=== PATIENT | female | born 1950 | race Two or more races ===

== ENCOUNTER → 2017-05-29 | Outpatient (CLI) | payer BC, MEDICARE, OTHER ==
--- NOTE | 2017-06-03 07:38 | MM ---
Reason for exam: additional evaluation requested from abnormal screening. Last mammogram was performed 6 years ago. History: Patient is postmenopausal and is nulliparous. Physical Findings: Nurse did not find any significant physical abnormalities on exam. MG 3D Screening Mammo W/Cad Bilateral CC and MLO view(s) were taken. Prior study comparison: June 13, 2011, mammogram, performed at [facility]. There are scattered fibroglandular densities. There is chronic nodularity bilaterally. New calcifications associated with a nodule on each side on the right posteriorly and centrally and on the left at 2o'clock posteriorly. Early popcorn or other benign type calcifications are favored. ASSESSMENT: Incomplete: need additional imaging evaluation, BI-RAD 0 RECOMMENDATION: Special view mammogram of both breasts. If lesion persists on supplemental views, image directed ultrasound is recommended. [facility] will attempt to contact patient to return for supplemental views and ultrasound if indicated.
== END | disposition home or self-care (01) ==
LOC: RADMAMWWP 10:23
PROVIDERS: ATTEND Family Medicine
DX: Z12.31 Encounter for screening mammogram for malignant neoplasm of breast (principal); R92.2 Inconclusive mammogram
CPT/HCPCS: 77063; G0202

== ENCOUNTER → 2017-06-19 | Outpatient (CLI) | payer OTHER ==
--- NOTE | 2017-06-19 15:21 | MM ---
Reason for exam: additional evaluation requested from abnormal screening. Last mammogram was performed 1 month ago. History: Patient is postmenopausal and is nulliparous. Physical Findings: Nurse did not find any significant physical abnormalities on exam. MG Work Up Mamm w CAD BILAT Bilateral ML, CC with magnification, and ML with magnification view(s) were taken. LM and LM with magnification view(s) were taken of the right breast. Prior study comparison: May 29, 2017, bilateral MG 3d screening mammo w/cad. June 13, 2011, mammogram, performed at [facility]. The breast tissue is heterogeneously dense. This may lower the sensitivity of mammography. The left breast calcifications layer on true lateral compatable with benign milk of calcium. The right breast calcifications in question are similar to other calcifications through out the breast, rounded and probably benign. A 6 month follow up is recommended. These results were verbally communicated with the patient and result sheet given to the patient on 06/19/17. ASSESSMENT: Probably benign, BI-RAD 3 RECOMMENDATION: Follow-up diagnostic mammogram of the right breast in 6 months.
== END | disposition home or self-care (01) ==
LOC: RADMAMWWP 10:50
PROVIDERS: ATTEND Family Medicine
DX: R92.8 Other abnormal and inconclusive findings on diagnostic imaging of breast (principal)

== ENCOUNTER → 2018-03-24 | Outpatient (CLI) | payer OTHER ==
--- NOTE | 2018-03-24 11:30 | MM ---
Reason for exam: follow-up at short interval from prior study. Last mammogram was performed 9 months ago. History: Patient is postmenopausal and is nulliparous. Physical Findings: Nurse did not find any significant physical abnormalities on exam. MG Diagnostic Mammo RT w CAD CC and MLO view(s) were taken of the right breast. Prior study comparison: June 19, 2017, bilateral MG work up mamm w CAD BILAT. May 29, 2017, bilateral MG 3d screening mammo w/cad. Finding: There are typically benign round, grouped and diffuse/scattered calcifications in the right breast. There is a chronic nodularity in the right breast. There is no discrete abnormality. These results were verbally communicated with the patient and result sheet given to the patient on 03/24/18. ASSESSMENT: Benign, BI-RAD 2 RECOMMENDATION: Follow-up diagnostic mammogram of both breasts in 3 months. Back on schedule for June 2018.
== END | disposition home or self-care (01) ==
LOC: RADMAMWWP 10:23
PROVIDERS: ATTEND Family Medicine
DX: R92.1 Mammographic calcification found on diagnostic imaging of breast (principal)
CPT/HCPCS: 77065

== ENCOUNTER → 2019-05-18 | Outpatient (CLI) | payer OTHER ==
--- NOTE | 2019-05-18 10:15 | MM ---
Reason for exam: additional evaluation requested from prior study. Last mammogram was performed 1 year and 2 months ago. History: Patient is postmenopausal and is nulliparous. Physical Findings: Nurse did not find any significant physical abnormalities on exam. MG Diagnostic Mammo w CAD PATY Bilateral CC and MLO view(s) were taken. Prior study comparison: March 24, 2018, right breast MG diagnostic mammo RT w CAD. June 19, 2017, bilateral MG work up mamm w CAD BILAT. The breast tissue is heterogeneously dense. This may lower the sensitivity of mammography. Benign appearing stable bilateral calcifications. There is chronic nodularity bilaterally. No significant new findings when compared with previous films. These results were verbally communicated with the patient and result sheet given to the patient on 05/18/19. ASSESSMENT: Benign, BI-RAD 2 RECOMMENDATION: Routine screening mammogram of both breasts in 1 year.
== END | disposition home or self-care (01) ==
LOC: RADMAMWWP 07:45
DX: R92.1 Mammographic calcification found on diagnostic imaging of breast (principal)
CPT/HCPCS: 77066

== ENCOUNTER → 2020-05-31 | Outpatient (CLI) | payer OTHER ==
--- NOTE | 2020-06-01 14:54 | MM ---
Reason for exam: screening (asymptomatic). Last mammogram was performed 1 year ago. History: Patient is postmenopausal and is nulliparous. Physical Findings: A clinical breast exam by your physician is recommended on an annual basis and results should be correlated with mammographic findings. MG 3D Screening Mammo W/Cad Bilateral CC and MLO view(s) were taken. Prior study comparison: May 18, 2019, bilateral MG diagnostic mammo w CAD PATY. March 24, 2018, right breast MG diagnostic mammo RT w CAD. There are scattered fibroglandular densities. There is chronic nodularity bilaterally. No significant changes when compared with prior studies. ASSESSMENT: Benign, BI-RAD 2 RECOMMENDATION: Routine screening mammogram of both breasts in 1 year.
== END | disposition home or self-care (01) ==
LOC: RADMAMWWP 12:53
DX: Z12.31 Encounter for screening mammogram for malignant neoplasm of breast (principal)
CPT/HCPCS: 77063; 77067

== ENCOUNTER → 2021-06-02 | Outpatient (CLI) | payer OTHER ==
--- NOTE | 2021-06-06 13:40 | MM ---
Reason for exam: screening (asymptomatic). Last mammogram was performed 1 year ago. History: Patient is postmenopausal and is nulliparous. Physical Findings: A clinical breast exam by your physician is recommended on an annual basis and results should be correlated with mammographic findings. MG 3D Screening Mammo W/Cad Bilateral CC and MLO view(s) were taken. XCCL view(s) were taken of the right breast. Prior study comparison: May 31, 2020, bilateral MG 3d screening mammo w/cad. May 18, 2019, bilateral MG diagnostic mammo w CAD PATY. There are scattered fibroglandular densities. Stable calcifications. There is chronic nodularity bilaterally. No significant changes when compared with prior studies. ASSESSMENT: Benign, BI-RAD 2 RECOMMENDATION: Routine screening mammogram of both breasts in 1 year.
== END | disposition home or self-care (01) ==
LOC: RADMAMWWP 10:16
PROVIDERS: ATTEND Family Medicine
DX: Z12.31 Encounter for screening mammogram for malignant neoplasm of breast (principal); Z78.0 Asymptomatic menopausal state
CPT/HCPCS: 77063; 77067

== ENCOUNTER 2022-01-03 06:17 | Inpatient (IN) | payer OTHER, MEDICARE ==
[2022-01-03] MEDS ORDERED: IPRATROPIUM 0.5 MG/2.5 ML NEBU INHALATION STA (06:24)
[2022-01-03] MEDS ORDERED: ALBUTEROL NEBULIZED 2.5 MG/3 ML INHALATION STA (06:24)
[2022-01-03 06:49] LABS: Basophils # (A) 0.1 k/uL (0-0.2); Basophils % (A) 0 %; Eosinophils # (A) 0.1 k/uL (0-0.7); Eosinophils % (A) 1 %; HCT 42.2 % (34.0-46.0); Lymphocytes # (A) 0.9 k/uL (1.0-4.8); Lymphocytes % (A) 6 %; MCHC 33.2 g/dL (31.0-37.0); MCV 93.4 fL (80.0-100.0); Mean Platelet Volume 7.6; Monocytes # (A) 0.4 k/uL (0-1.0); Monocytes % (A) 3 %; Neutrophils # (A) 14.2 k/uL (1.3-7.7); Neutrophils % (A) 90 %; Platelet Count 245 k/uL (150-450); RBC 4.52 m/uL (3.80-5.40); RDW 14.4 % (11.5-15.5); WBC 15.8 k/uL (3.8-10.6)
--- NOTE | 2022-01-03 06:49 | ED ---
SOB HPI - General Chief Complaint: Shortness of Breath Stated Complaint: BRUCE Time Seen by Provider: 01/03/22 06:23 Source: patient, EMS Mode of arrival: EMS - History of Present Illness Initial Comments: This patient is 71-year-old woman brought from [facility] home for shortness of breath. [facility] Patient's ability give history slightly limited as she is very dyspneic and wearing BiPAP mask. She is able to give very short answers to questions. The breathing has been worsening over the past couple of days much worse overnight. Patient denies fever or chills. No productive cough. No chest pain. No change in urination or bowel movements. No leg swelling noted. MD Complaint: shortness of breath, cough -: days(s) Severity scale (1-10): 0 Consistency: constant Improves With: nothing Worsens With: lying flat Known History Of: COPD Associated Symptoms: denies other symptoms Treatments Prior to Arrival: oxygen, NIPPV - Related Data Home Medications Medication Instructions Recorded Confirmed Acetaminophen Tab [Tylenol] 500 mg PO Q4H PRN MDD 6 TABS 01/03/22 01/03/22 Alendronate Sodium 70 mg PO Q7D 01/03/22 01/03/22 Calcium Carbonate/Vitamin D3 1 tab PO BID 01/03/22 01/03/22 [Calcium 500 mg-Vit D3 5 mcg (200 Unit)] Carboxymethylcell/Glycerin/Pf 1 drop BOTH EYES QID 01/03/22 01/03/22 [Refresh Relieva Pf 0.5-1% Drop] DULoxetine HCL [Cymbalta] 60 mg PO DAILY 01/03/22 01/03/22 Ergocalciferol [Vitamin D2 (1250 1,250 mcg PO Q14D 01/03/22 01/03/22 Mcg = 04198 Iu)] Felodipine [Felodipine ER] 10 mg PO BID 01/03/22 01/03/22 Fluticasone/Salmeterol [Advair 1 inhalation PO RT-BID 01/03/22 01/03/22 100-50 Diskus] Furosemide [Lasix] 10 mg PO DAILY 01/03/22 01/03/22 Ipratropium/Albuter 20-100Mcg 1 puff INHALATION RT-QID PRN 01/03/22 01/03/22 [Combivent Respimat 20-100Mcg Inhaler] Latanoprost [Xalatan 0.005%] 1 drop BOTH EYES HS 01/03/22 01/03/22 Lisinopril-Hctz 20-25 mg 1 tab PO DAILY 01/03/22 01/03/22 [Zestoretic 20-25] Metoprolol Tartrate [Lopressor] 50 mg PO BID 01/03/22 01/03/22 Omeprazole [PriLOSEC] 40 mg PO DAILY 01/03/22 01/03/22 Oxybutynin Chloride [Ditropan] 5 mg PO TID 01/03/22 01/03/22 Potassium Chloride [Klor-Con 10 ER] 10 meq PO Q48H 01/03/22 01/03/22 QUEtiapine FUMARATE [SEROquel] 300 mg PO HS 01/03/22 01/03/22 Simvastatin [Zocor] 40 mg PO HS 01/03/22 01/03/22 lamoTRIgine [LaMICtal] 100 mg PO BID 01/03/22 01/03/22 lamoTRIgine [LaMICtal] 200 mg PO BID 01/03/22 01/03/22 Previous Rx's Medication Instructions Recorded Albuterol Sulfate [Albuterol 2 puff PO RT-Q8H PRN #1 inh 01/09/22 Sulfate Hfa] Allergies Allergy/AdvReac Type Severity Reaction Status Date / Time paliperidone [From Invega] Allergy swelling Verified 01/03/22 08:50 of tongue Penicillins Allergy Rash/Hives Verified 01/03/22 08:50 Review of Systems ROS Statement: Those systems with pertinent positive or pertinent negative responses have been documented in the HPI. ROS Other: All systems not noted in ROS Statement are negative. Limitations: ROS unobtainable due to patients medical condition Constitutional: Denies: fever Respiratory: Reports: cough, dyspnea Cardiovascular: Denies: chest pain, edema Gastrointestinal: Denies: abdominal pain, vomiting Genitourinary: Denies: dysuria Neurological: Denies: headache Past Medical History Past Medical History: Hypertension, Thyroid Disorder History of Any Multi-Drug Resistant Organisms: None Reported Past Surgical History: Cholecystectomy, Hysterectomy Past Psychological History: Anxiety, Depression Smoking Status: Never smoker Past Alcohol Use History: None Reported Past Drug Use History: None Reported - Past Family History Father Additional Family Medical History / Comment(s): Respiratory problems Mother Additional Family Medical History / Comment(s): Heart problems. General Exam General appearance: alert, in distress Head exam: Present: atraumatic, normocephalic Eye exam: Present: normal appearance. Absent: scleral icterus, conjunctival injection Respiratory exam: Present: respiratory distress, wheezes, accessory muscle use, decreased breath sounds, prolonged expiratory. Absent: rales, rhonchi, stridor Cardiovascular Exam: Present: regular rate, normal rhythm, normal heart sounds. Absent: systolic murmur, diastolic murmur, rubs, gallop GI/Abdominal exam: Present: soft. Absent: distended, tenderness, guarding, rebound Extremities exam: Present: normal inspection, normal capillary refill. Absent: pedal edema, calf tenderness Back exam: Present: normal inspection Neurological exam: Present: alert Skin exam: Present: warm, dry, intact, normal color. Absent: rash Course Vital Signs 01/03/22 01/03/22 01/03/22 06:34 07:16 07:26 Temperature 97.7 F Pulse Rate 85 83 85 Respiratory 28 H Rate Blood Pressure 155/90 O2 Sat by Pulse 98 Oximetry 01/03/22 01/03/22 01/03/22 07:48 09:14 11:34 Temperature 97.8 F Pulse Rate 96 82 79 Respiratory 20 20 Rate Blood Pressure 129/67 126/80 O2 Sat by Pulse 99 98 Oximetry 01/03/22 01/03/22 11:48 14:00 Temperature Pulse Rate 83 85 Respiratory 16 Rate Blood Pressure 136/80 O2 Sat by Pulse 99 Oximetry Medical Decision Making - Lab Data Result diagrams: 01/07/22 05:05 01/07/22 05:05 Lab Results 01/03/22 01/03/22 01/03/22 Range/Units 06:25 06:25 06:25 WBC 15.8 H (3.8-10.6) k/uL RBC 4.52 (3.80-5.40) m/uL Hgb 14.0 (11.4-16.0) gm/dL Hct 42.2 (34.0-46.0) % MCV 93.4 (80.0-100.0) fL MCH 31.0 (25.0-35.0) pg MCHC 33.2 (31.0-37.0) g/dL RDW 14.4 (11.5-15.5) % Plt Count 245 (150-450) k/uL MPV 7.6 Neutrophils % 90 % Lymphocytes % 6 % Monocytes % 3 % Eosinophils % 1 % Basophils % 0 % Neutrophils # 14.2 H (1.3-7.7) k/uL Lymphocytes # 0.9 L (1.0-4.8) k/uL Monocytes # 0.4 (0-1.0) k/uL Eosinophils # 0.1 (0-0.7) k/uL Basophils # 0.1 (0-0.2) k/uL Sodium 129 L (137-145) mmol/L Potassium 3.5 (3.5-5.1) mmol/L Chloride 95 L (98-107) mmol/L Carbon Dioxide 24 (22-30) mmol/L Anion Gap 10 mmol/L BUN 14 (7-17) mg/dL Creatinine 0.80 (0.52-1.04) mg/dL Est GFR (CKD-EPI)AfAm 87 (>60 ml/min/1.73 sqM) Est GFR (CKD-EPI)NonAf 75 (>60 ml/min/1.73 sqM) Glucose 175 H (74-99) mg/dL Plasma Lactic Acid Skyler 1.8 (0.7-2.0) mmol/L Calcium 8.8 (8.4-10.2) mg/dL Total Bilirubin 0.7 (0.2-1.3) mg/dL AST 24 (14-36) U/L ALT 15 (4-34) U/L Alkaline Phosphatase 103 (38-126) U/L Troponin I (0.000-0.034) ng/mL NT-Pro-B Natriuret Pep pg/mL Total Protein 6.9 (6.3-8.2) g/dL Albumin 3.8 (3.5-5.0) g/dL 01/03/22 01/03/22 Range/Units 06:25 06:25 WBC (3.8-10.6) k/uL RBC (3.80-5.40) m/uL Hgb (11.4-16.0) gm/dL Hct (34.0-46.0) % MCV (80.0-100.0) fL MCH (25.0-35.0) pg MCHC (31.0-37.0) g/dL RDW (11.5-15.5) % Plt Count (150-450) k/uL MPV Neutrophils % % Lymphocytes % % Monocytes % % Eosinophils % % Basophils % % Neutrophils # (1.3-7.7) k/uL Lymphocytes # (1.0-4.8) k/uL Monocytes # (0-1.0) k/uL Eosinophils # (0-0.7) k/uL Basophils # (0-0.2) k/uL Sodium (137-145) mmol/L Potassium (3.5-5.1) mmol/L Chloride (98-107) mmol/L Carbon Dioxide (22-30) mmol/L Anion Gap mmol/L BUN (7-17) mg/dL Creatinine (0.52-1.04) mg/dL Est GFR (CKD-EPI)AfAm (>60 ml/min/1.73 sqM) Est GFR (CKD-EPI)NonAf (>60 ml/min/1.73 sqM) Glucose (74-99) mg/dL Plasma Lactic Acid Skyler (0.7-2.0) mmol/L Calcium (8.4-10.2) mg/dL Total Bilirubin (0.2-1.3) mg/dL AST (14-36) U/L ALT (4-34) U/L Alkaline Phosphatase (38-126) U/L Troponin I 0.050 H* (0.000-0.034) ng/mL NT-Pro-B Natriuret Pep 801 pg/mL Total Protein (6.3-8.2) g/dL Albumin (3.5-5.0) g/dL - EKG Data EKG shows normal: sinus rhythm, intervals (MT interval 169 ms, QTC 470 ms, both normal. You are is duration 162 ms, prolonged consistent with the right bundle- branch block.), QRS complexes (Right bundle-branch block. Left anterior fascicular block.) Rate: normal (Rate 88 bpm) Disposition Clinical Impression: COPD exacerbation, Elevated troponin I level, Acute respiratory failure Disposition: ADMITTED IP TO THIS [facility] Condition: Serious Is patient prescribed a controlled substance at d/c from ED?: No
[2022-01-03 07:05] LABS: Albumin 3.8 g/dL (3.5-5.0); Potassium 3.5 mmol/L (3.5-5.1); Total Protein 6.9 g/dL (6.3-8.2)
[2022-01-03 07:06] LABS: Calcium 8.8 mg/dL (8.4-10.2); Total Bilirubin 0.7 mg/dL (0.2-1.3)
--- NOTE | 2022-01-03 07:15 | XR ---
EXAMINATION TYPE: XR chest 1V portable DATE OF EXAM: 01/03/2022 COMPARISON: NONE HISTORY: Dyspnea. TECHNIQUE: Single AP portable frontal upright view of the chest is obtained. FINDINGS: There is chronic parenchymal change without suspicious focal air space opacity, pleural ef fusion, or pneumothorax seen. Cardiomegaly is present. The osseous structures are intact. Overlying EKG leads. IMPRESSION: Chronic parenchymal changes and cardiomegaly without acute pulmonary process.
[2022-01-03] MEDS: AZITHROMYCIN 500 MG TAB PO SCH (08:42)
[2022-01-03] MEDS: ASPIRIN 81 MG PO SCH (08:42)
[2022-01-03] MEDS: methylPREDNISolone SOD SUCCI 125 MG/2 ML VIAL IV SCH ×3 (08:43→23:47)
[2022-01-03] MEDS: HEPARIN SODIUM,PORCINE/PF 5,000 UNIT/0.5 ML SYRINGE SQ SCH ×2 (08:44→20:58)
--- NOTE | 2022-01-03 08:53 | P.HPIM ---
History of Present Illness This is a pleasant 71 years old female with past medical history of hypertension and hypothyroidism Presents because of dyspnea and hypoxia, and EMS was saturation of 70% on room air and placed supine with CPAP and possible saturation up to 94% and received 1 dose of steroids. Patient came from home, she has a legal guardian. Patient states that her problems started with a cold over the weekend and to get worse but later on she said that her shortness of breath actually started last Saturday and it was gradually worse and that she is on home dose of oxygen 5 L/m as she thinks. Also she is complaining of from cough and some creamy phlegm but no chest pain or abdominal pain. No diarrhea or vomiting. No urinary complaints, she has some mild headache which is improving, no weakness or numbness or double vision or slurred speech. She was hypoxic on the way to the hospital at 70% on room air, currently she is on BiPAP was saturating 98%, mildly tachypneic at 20, afebrile. Troponin elevated 0.05. chest x-ray: Chronic parenchymal changes and cardiomegaly without acute pulmonary process. proBNP is 801 EKG showing right bundle branch block and left anterior fascicular block with QTC 470. In the emergency room she was started on Zithromax, IV Solu-Medrol and normal saline at 100 mL per hour Pulmonary team were consulted Review of Systems CONSTITUTIONAL: No fever, no malaise, no fatigue. HEENT: No recent visual problems or hearing problems. Denied any sore throat. CARDIOVASCULAR: No orthopnea, PND, no palpitations, no syncope. PULMONARY: No shortness of breath, no cough, no hemoptysis. GASTROINTESTINAL: No diarrhea, no nausea, no vomiting, no abdominal pain. Normoactive bowel sounds. NEUROLOGICAL: No headaches, no weakness, no numbness. HEMATOLOGICAL: Denies any bleeding or petechiae. GENITOURINARY: Denies any burning micturition, frequency, or urgency. MUSCULOSKELETAL/RHEUMATOLOGICAL: Denies any joint pain, swelling, or any muscle pain. ENDOCRINE: Denies any polyuria or polydipsia. Past Medical History Past Medical History: Hypertension, Thyroid Disorder History of Any Multi-Drug Resistant Organisms: None Reported Past Surgical History: Cholecystectomy, Hysterectomy Past Psychological History: Anxiety, Depression Smoking Status: Never smoker Past Alcohol Use History: None Reported Past Drug Use History: None Reported Medications and Allergies Allergies Allergy/AdvReac Type Severity Reaction Status Date / Time paliperidone [From Invega] Allergy Unknown Verified 01/03/22 06:42 Penicillins Allergy Unknown Verified 01/03/22 06:42 Physical Exam Vitals: Vital Signs Temp Pulse Resp BP Pulse Ox 01/03/22 07:48 97.8 F 96 20 129/67 99 01/03/22 07:26 85 01/03/22 07:16 83 01/03/22 06:34 97.7 F 85 28 H 155/90 98 Intake and Output 01/02/22 01/03/22 01/03/22 22:59 06:59 14:59 Other: Weight 103.873 kg -GENERAL: The patient is alert and oriented x3, not in any acute distress. Obese HEENT: Pupils are round and equally reacting to light. EOMI. No scleral icterus. No conjunctival pallor. Normocephalic, atraumatic. No pharyngeal erythema. No thyromegaly. CARDIOVASCULAR: S1 and S2 present. No murmurs, rubs, or gallops. -PULMONARY: Chest is clear to auscultation, no wheezing or crackles. Mildly thick and neck, on BiPAP ABDOMEN: Soft, nontender, nondistended, normoactive bowel sounds. No palpable organomegaly. MUSCULOSKELETAL: No joint swelling or deformity. EXTREMITIES: No cyanosis, clubbing, or pedal edema. NEUROLOGICAL: Gross neurological examination did not reveal any focal deficits. SKIN: No rashes. No petechiae Results CBC & Chem 7: 01/03/22 06:25 01/03/22 06:25 Labs: Abnormal Lab Results - Last 24 Hours (Table) 01/03/22 01/03/22 01/03/22 Range/Units 06:25 06:25 06:25 WBC 15.8 H (3.8-10.6) k/uL Neutrophils # 14.2 H (1.3-7.7) k/uL Lymphocytes # 0.9 L (1.0-4.8) k/uL Sodium 129 L (137-145) mmol/L Chloride 95 L (98-107) mmol/L Glucose 175 H (74-99) mg/dL Troponin I 0.050 H* (0.000-0.034) ng/mL Assessment and Plan Assessment: shortness of breath and hypoxia Possible acute COPD exacerbation Elevated troponin, rule out cardiac causes Acute on chronic hypoxic respiratory failure Hyponatremia Hypertension History of hyperthyroidism Obesity with BMI of 44.7 Plan: this is a pleasant 71 years old female who presents with dyspnea and elevated troponin Continue with steroids and Zithromax. Since it culture. Check Pro-calcitonin Continue with oxygen supply per requirement, and BiPAP as needed Pulmonary consult We'll add aspirin 81 mg, consult cardiology check echo cardiogram Check hemoglobin A1c and lipid profile Labs and medication were reviewed.. Continue same treatment. Continue with symptomatic treatment. Resume home medication. Monitor lytes and vitals. DVT and GI prophylaxis. Further recommendations depends on the clinical course of the patient DVT prophylaxis: Subcutaneous heparin GI Prophylaxis: Pepcid PT/OT: Deferred Prognosis is guarded
[2022-01-03] MEDS ORDERED: FAMOTIDINE 20 MG/2 ML VIAL IV SCH (09:00)
[2022-01-03] MEDS: BUDESONIDE 0.5 MG/2 ML NEBU INHALATION SCH ×2 (11:32→20:24)
[2022-01-03] MEDS: IPRATROPIUM 0.5 MG/2.5 ML NEBU INHALATION SCH ×4 (11:32→20:24)
[2022-01-03] MEDS: ALBUTEROL NEBULIZED 2.5 MG/3 ML INHALATION SCH ×4 (11:32→20:24)
--- NOTE | 2022-01-03 11:35 | P.CNPUL ---
History of Present Illness Consult date: 01/03/22 Requesting physician: Flores [facility] Reason for consult: dyspnea, hypoxemia Chief complaint: Shortness of breath. History of present illness: Pulmonary consult dated 01/03/2022. 71-year-old female [facility], for shortness of breath. She was seen in the emergency room this morning. The patient complains of shortness of breath, which has been going on for at least a day or so prior to admission, may be a bit longer. She is not a good historian, and she is currently on BiPAP which makes communication and history taking a bit difficult. She denies any fever or chills. She does have a bit of a cough but she is not producing any phlegm. There is no chest pain or chest discomfort. No nausea, vomiting, or diarrhea. No leg swelling or edema. Currently, the patient's on BiPAP at 12/6 and 100%. The patient's getting saline at KVO. Her coronavirus testing was negative. Her most recent vital signs include a blood pressure 135/72, heart rate 84 respiratory rate 18-20 breaths per minute, and a saturation of 99%. Her chest x-ray showed only chronic changes, with nothing acute. White count 15.8, hemoglobin 14, hematocrit 42.2, platelet count 2 45 ,000. Sodium 129, potassium 3.5, chlorides 95, CO2 24, anion gap 10, BUN 14, creatinine 0.8. Troponin is 0.050. N-terminal proBNP is 801. Albumin is 3.8. Chest x-ray looks mostly clear. Review of Systems REVIEW OF SYSTEMS: CONSTITUTIONAL: [Negative.] NEUROLOGIC: [ Negative.] HEENT: [ Negative.] CARDIAC: [Negative.] PULMONARY: Shortness of breath, and minimal nonproductive cough. GI: [Negative.] : [Negative.] RHEUMATOLOGIC: [ Negative.] IMMUNOLOGIC: [ Negative.] ENDOCRINE: [Negative. ] DERMATOLOGIC: [Negative.] Past Medical History Past Medical History: COPD, Eye Disorder, GERD/Reflux, Hypertension, Pneumonia, Sleep Apnea/CPAP/BIPAP, Thyroid Disorder Additional Past Medical History / Comment(s): Urinary incontinence/pt has bladder stimulator in place, UTIs, CHENG with Cpap device, bilateral glaucoma, bronchitis, bilateral leg/pedal edema, History of Any Multi-Drug Resistant Organisms: None Reported Past Surgical History: Cholecystectomy, Hysterectomy, Orthopedic Surgery Additional Past Surgical History / Comment(s): Bladder stimulator, bilateral feet bunionectomies, colonoscopy Past Anesthesia/Blood Transfusion Reactions: No Reported Reaction Smoking Status: Never smoker - Past Family History Father Additional Family Medical History / Comment(s): Respiratory problems Mother Additional Family Medical History / Comment(s): Heart problems. Medications and Allergies Home Medications Medication Instructions Recorded Confirmed Type Acetaminophen Tab [Tylenol Tab] 500 mg PO Q4H PRN MDD 6 TABS 01/03/22 01/03/22 History Albuterol Sulfate [Albuterol 2 puff PO RT-Q8H PRN 01/03/22 01/03/22 History Sulfate Hfa] Alendronate Sodium 70 mg PO Q7D 01/03/22 01/03/22 History Calcium Carbonate/Vitamin D3 1 tab PO BID 01/03/22 01/03/22 History [Calcium 500 mg-Vit D3 5 mcg (200 Unit)] Carboxymethylcell/Glycerin/Pf 1 drop BOTH EYES QID 01/03/22 01/03/22 History [Refresh Relieva Pf 0.5-1% Drop] DULoxetine HCL [Cymbalta] 60 mg PO DAILY 01/03/22 01/03/22 History Ergocalciferol [Vitamin D2 (1250 1,250 mcg PO Q14D 01/03/22 01/03/22 History Mcg = 24247 Iu)] Felodipine [Felodipine ER] 10 mg PO BID 01/03/22 01/03/22 History Fluticasone/Salmeterol [Advair 1 inhalation PO RT-BID 01/03/22 01/03/22 History 100-50 Diskus] Furosemide [Lasix] 10 mg PO DAILY 01/03/22 01/03/22 History Ipratropium/Albuter 20-100Mcg 1 puff INHALATION RT-QID PRN 01/03/22 01/03/22 History [Combivent Respimat 20-100Mcg Inhaler] Latanoprost [Xalatan 0.005%] 1 drop BOTH EYES HS 01/03/22 01/03/22 History Lisinopril-Hctz 20-25 mg 1 tab PO DAILY 01/03/22 01/03/22 History [Zestoretic 20-25] Metoprolol Tartrate [Lopressor] 50 mg PO BID 01/03/22 01/03/22 History Omeprazole [PriLOSEC] 40 mg PO DAILY 01/03/22 01/03/22 History Oxybutynin Chloride [Ditropan] 5 mg PO TID 01/03/22 01/03/22 History Potassium Chloride [Klor-Con 10 ER] 10 meq PO Q48H 01/03/22 01/03/22 History QUEtiapine FUMARATE [SEROquel] 300 mg PO HS 01/03/22 01/03/22 History Simvastatin [Zocor] 40 mg PO HS 01/03/22 01/03/22 History lamoTRIgine [LaMICtal] 100 mg PO BID 01/03/22 01/03/22 History lamoTRIgine [LaMICtal] 200 mg PO BID 01/03/22 01/03/22 History Allergies Allergy/AdvReac Type Severity Reaction Status Date / Time paliperidone [From Invega] Allergy swelling Verified 01/03/22 08:50 of tongue Penicillins Allergy Rash/Hives Verified 01/03/22 08:50 Physical Exam Osteopathic Statement: *. No significant issues noted on an osteopathic structural exam other than those noted in the History and Physical/Consult. Vitals: Vital Signs Temp Pulse Resp BP Pulse Ox 01/03/22 09:14 82 20 126/80 98 01/03/22 07:48 97.8 F 96 20 129/67 99 01/03/22 07:26 85 01/03/22 07:16 83 01/03/22 06:34 97.7 F 85 28 H 155/90 98 Intake and Output 01/02/22 01/03/22 01/03/22 22:59 06:59 14:59 Other: Weight 103.873 kg 103.873 kg Mild conversational dyspnea, BiPAP mask in place. Oriented 3. HEENT examination is grossly unremarkable. Neck supple. Full range of motion. No adenopathy thyromegaly or neck vein distention. Cardiovascular examination reveals regular rhythm rate. S1-S2 normal. No S3 or S4. No discernible murmur noted. Heart rate 82 bpm. Lungs reveal mostly clear breath sounds. Mild scattered rhonchi. No wheezes or crackles. Breath sounds equal bilaterally. Abdomen is soft. Bowel sounds are noted. No masses or tenderness. Extremities are intact. No cyanosis clubbing or edema. Skin is without rash or lesion. Neurologic examination is brief but nonfocal. Results - Laboratory Findings CBC and BMP: 01/03/22 06:25 01/03/22 06:25 Abnormal lab findings: Abnormal Labs 01/03/22 01/03/22 01/03/22 06:25 06:25 06:25 WBC 15.8 H Neutrophils # 14.2 H Lymphocytes # 0.9 L Sodium 129 L Chloride 95 L Glucose 175 H Troponin I 0.050 H* - Diagnostic Findings Chest x-ray: image reviewed Assessment and Plan Assessment: Shortness of breath, of unclear etiology. Pulmonary embolism should be ruled out, with a CT angiogram. Questionable history of COPD. History of hypertension. History of hyperlipidemia. History of gastroesophageal reflux disease. History of anxiety/depression. History of urinary incontinence. History of osteoporosis. Plan: Plan dated 01/03/2022. The patient should be sent for a CT angiogram to rule out pulmonary embolism. There is a vague history of COPD although the patient apparently is a lifelong non-tobacco user. She may have underlying asthma. That does not appear to be particularly active at this time. Additional recommendations and suggestions are forthcoming. Prognosis is guarded. We will continue to follow. FiO2 can be weaned on the BiPAP device. Time with Patient: Greater than 30
--- NOTE | 2022-01-03 12:37 | ECHOF ---
Referral Reason: MEASUREMENTS -------- HEIGHT: 154.9 cm WEIGHT: 103.9 kg BP: RVIDd: 3.1 cm (< 3.3) IVSd: 1.2 cm (0.6 - 1.1) LVIDd: 4.1 cm (3.9 - 5.3) LVPWd: 1.5 cm (0.6 - 1.1) IVSs: 1.9 cm LVIDs: 2.5 cm LVPWs: 1.9 cm Ao Diam: 2.8 cm (2.0 - 3.7) AV Cusp: 2.0 cm (1.5 - 2.6) LA Diam: 3.4 cm (2.7 - 3.8) MV EXCURSION: 13.536 mm (> 18.000) MV EF SLOPE: 63 mm/s (70 - 150) EPSS: 0.4 cm MV E Francisco Javier: 0.47 m/s MV DecT: 96 ms MV A Francisco Javier: 0.69 m/s MV E/A Ratio: 0.68 RAP: 5.00 mmHg RVSP: 13.19 mmHg FINDINGS -------- Sinus rhythm. This was a technically difficult study with suboptimal apical views. The left ventricular size is normal. There is mild concentric left ventricular hypertrophy. Overa ll left ventricular systolic function is normal with, an EF between 55 - 60 %. The right ventricle is normal in size. The left atrial size is normal. The right atrial size is normal. The aortic valve is trileaflet and appears structurally normal. The mitral valve is normal. There is trace mitral regurgitation. The tricuspid valve appears structurally normal. Trace tricuspid regurgitation present. Right doe tricular systolic pressure is normal at < 35 mmHg. There is no pulmonic regurgitation present. The aortic root size is normal. IVC Not well visulized. There is no pericardial effusion. CONCLUSIONS -------- 1. There is mild concentric left ventricular hypertrophy. 2. Overall left ventricular systolic function is normal with, an EF between 55 - 60 %. 3. There is trace mitral regurgitation. 4. Trace tricuspid regurgitation present. 5. There is no pericardial effusion. WELL DRILLER: Rafaela Mendes [facility]
--- NOTE | 2022-01-03 13:08 | CT ---
EXAMINATION TYPE: CT angio chest DATE OF EXAM: 01/03/2022 COMPARISON: 01/03/2022 HISTORY: COPD Exacerbation CT DLP: 391.9 mGycm CONTRAST: CT chest with contrast and 3D reconstruction with MIP imaging is performed with IV Contrast, patient injected with 79 mL of Isovue 370. Contrast-enhanced CT of the chest was performed through the course of the pulmonary arteries with navi g and mediastinal window settings submitted. 3D reconstruction with MIP imaging was also performed. PULMONARY ARTERIES: The pulmonary arteries and their major tributaries are patent. I do not see buck dence for sizable filling defect to suggest pulmonary embolic process. LUNGS: The lungs are clear and free of infiltrate. No evidence for atelectasis. No pulmonary nodule or mass is detected. No pleural effusion. MEDIASTINUM: Thoracic aorta is of normal caliber. There is an aberrant right subclavian artery noted. The heart is not enlarged. No evidence for mediastinal mass. No mediastinal lymph nodes greater th an 1cm. HILAR STRUCTURES: No evidence for mass. No hilar lymph nodes greater than 1 cm. UPPER ABDOMEN: No significant abnormality is seen. IMPRESSION: 1. No evidence for Pulmonary embolism at this time.
[2022-01-03 16:34] LABS: Glucose,Whole Blood 214 mg/dL (75-99)
[2022-01-03] MEDS: SODIUM CHLORIDE 0.9% 1,000 ML IV SCH ×2 (17:07→21:01)
[2022-01-03] MEDS: INSULIN ASPART (NovoLOG) 100 UNIT/ML VIAL SQ SCH ×2 (17:08→20:58)
[2022-01-03 19:51] LABS: Glucose,Whole Blood 172 mg/dL (75-99)
[2022-01-04] MEDS: SODIUM CHLORIDE 0.9% 1,000 ML IV SCH ×2 (04:16→21:56)
[2022-01-04] MEDS: methylPREDNISolone SOD SUCCI 125 MG/2 ML VIAL IV SCH ×4 (05:58→23:56)
[2022-01-04 06:25] LABS: Glucose,Whole Blood 164 mg/dL (75-99)
[2022-01-04] MEDS: INSULIN ASPART (NovoLOG) 100 UNIT/ML VIAL SQ SCH ×4 (06:36→21:56)
[2022-01-04 07:36] LABS: Basophils % (A) 0 %; Eosinophils # (A) 0.1 k/uL (0-0.7); Eosinophils % (A) 1 %; HCT 42.7 % (34.0-46.0); HGB 14.2 gm/dL (11.4-16.0); Lymphocytes # (A) 0.6 k/uL (1.0-4.8); Lymphocytes % (A) 5 %; MCH 31.1 pg (25.0-35.0); MCHC 33.1 g/dL (31.0-37.0); MCV 93.8 fL (80.0-100.0); Mean Platelet Volume 7.5; Monocytes # (A) 0.4 k/uL (0-1.0); Monocytes % (A) 3 %; Neutrophils # (A) 10.5 k/uL (1.3-7.7); Neutrophils % (A) 90 %; Platelet Count 261 k/uL (150-450); RBC 4.56 m/uL (3.80-5.40); RDW 13.7 % (11.5-15.5); WBC 11.6 k/uL (3.8-10.6)
[2022-01-04] MEDS: ALBUTEROL NEBULIZED 2.5 MG/3 ML INHALATION SCH ×2 (08:02→11:43)
[2022-01-04] MEDS: BUDESONIDE 0.5 MG/2 ML NEBU INHALATION SCH ×2 (08:02→20:17)
[2022-01-04] MEDS: IPRATROPIUM 0.5 MG/2.5 ML NEBU INHALATION SCH ×2 (08:02→11:43)
[2022-01-04 08:12] LABS: African American GFR (CKD) >90 (>60 ml/min/1.73 sqM); Anion Gap 6 mmol/L; Blood Urea Nitrogen 14 mg/dL (7-17); Calcium 9.1 mg/dL (8.4-10.2); Carbon Dioxide 26 mmol/L (22-30); Chloride 103 mmol/L (98-107); Glucose 156 mg/dL (74-99); Magnesium 2.1 mg/dL (1.6-2.3); Non-African American GFR(CKD) >90 (>60 ml/min/1.73 sqM); Potassium 3.8 mmol/L (3.5-5.1); Sodium 135 mmol/L (137-145)
[2022-01-04] MEDS: HEPARIN SODIUM,PORCINE/PF 5,000 UNIT/0.5 ML SYRINGE SQ SCH ×2 (08:27→21:55)
[2022-01-04] MEDS: ASPIRIN 81 MG PO SCH (08:28)
[2022-01-04] MEDS: AZITHROMYCIN 500 MG TAB PO SCH (08:28)
[2022-01-04] MEDS ORDERED: FAMOTIDINE 20 MG/2 ML VIAL IV SCH (09:00)
[2022-01-04] MEDS ORDERED: IPRATROPIUM 0.5 MG/2.5 ML NEBU INHALATION PRN (09:56)
--- NOTE | 2022-01-04 09:58 | P.PN ---
Subjective This is a pleasant 71 years old female with past medical history of hypertension and hypothyroidism Presents because of dyspnea and hypoxia, and EMS was saturation of 70% on room air and placed supine with CPAP and possible saturation up to 94% and received 1 dose of steroids. Patient came from home, she has a legal guardian. Patient states that her problems started with a cold over the weekend and to get worse but later on she said that her shortness of breath actually started last Saturday and it was gradually worse and that she is on home dose of oxygen 5 L/m as she thinks. Also she is complaining of from cough and some creamy phlegm but no chest pain or abdominal pain. No diarrhea or vomiting. No urinary complaints, she has some mild headache which is improving, no weakness or numbness or double vision or slurred speech. She was hypoxic on the way to the hospital at 70% on room air, currently she is on BiPAP was saturating 98%, mildly tachypneic at 20, afebrile. Troponin elevated 0.05. chest x-ray: Chronic parenchymal changes and cardiomegaly without acute pulmonary process. proBNP is 801 EKG showing right bundle branch block and left anterior fascicular block with QTC 470. In the emergency room she was started on Zithromax, IV Solu-Medrol and normal saline at 100 mL per hour Pulmonary team were consulted 01/04/2022 Patient mildly tachypneic while sitting in bed, no maternal wheezing on examination. Only mild 1. Patient says she coughs a lot with little phlegm but no chest pain. She's been using BiPAP most of the night in the morning she was placed on 6 L per minute of oxygen with saturation in high 90s. CT of the chest is negative Pulmonary on the case Cardiology consulted for high troponin. Patient states that albuterol inhaler causing her shakiness and exactly and wanted to be switched, I checked with the pharmacy we don't carry levoalbuterol, therefore was initiated to ipratropium as needed. Objective - Vital Signs Vital signs: Vital Signs Temp 97.6 F 01/04/22 04:00 Pulse 92 01/04/22 08:14 Resp 20 01/04/22 08:00 BP 174/81 01/04/22 08:00 Pulse Ox 96 01/04/22 08:00 Intake & Output 02/01/04/22 01/04/22 18:59 06:59 18:59 Intake Total 240 320 240 Output Total 650 1225 Balance -410 -905 240 Weight 103.873 kg Intake: Oral 240 320 240 Output: Urine 650 1225 Other: Voiding Method Bedside Commode # Bowel Movements 1 - Exam -GENERAL: The patient is alert and oriented x3, not in any acute distress. Morb idly obese HEENT: Pupils are round and equally reacting to light. EOMI. No scleral icterus. No conjunctival pallor. Normocephalic, atraumatic. No pharyngeal erythema. No thyromegaly. CARDIOVASCULAR: S1 and S2 present. No murmurs, rubs, or gallops. -PULMONARY: Chest is clear to auscultation, Mild scattered wheezing. no crackles ABDOMEN: Soft, nontender, nondistended, normoactive bowel sounds. No palpable organomegaly. MUSCULOSKELETAL: No joint swelling or deformity. EXTREMITIES: No cyanosis, clubbing, or pedal edema. NEUROLOGICAL: Gross neurological examination did not reveal any focal deficits. SKIN: No rashes. no petechiae. - Labs CBC & Chem 7: 01/04/22 07:17 01/04/22 07:17 Labs: Abnormal Lab Results - Last 24 Hours (Table) 01/03/22 01/03/22 01/04/22 Range/Units 16:33 19:48 06:19 WBC (3.8-10.6) k/uL Neutrophils # (1.3-7.7) k/uL Lymphocytes # (1.0-4.8) k/uL Sodium (137-145) mmol/L Glucose (74-99) mg/dL POC Glucose (mg/dL) 214 H 172 H 164 H (75-99) mg/dL 01/04/22 01/04/22 Range/Units 07:17 07:17 WBC 11.6 H (3.8-10.6) k/uL Neutrophils # 10.5 H (1.3-7.7) k/uL Lymphocytes # 0.6 L (1.0-4.8) k/uL Sodium 135 L (137-145) mmol/L Glucose 156 H (74-99) mg/dL POC Glucose (mg/dL) (75-99) mg/dL
--- NOTE | 2022-01-04 12:00 | P.CRDCN ---
History of Present Illness History of present illness: HISTORY OF PRESENTING ILLNESS This is a pleasant 71-year-old female past medical history significant for hypertension, dyslipidemia, GERD, anxiety/depression, Obstructive sleep apnea wears CPAP and COPD. She does not follow with a mental health practitioner. [facility]. We have been asked to see in consultation for elevated troponin. Patient presents with complaints of shortness of breath, productive cough, dyspnea and hypoxia. She states she has chronic shortness of breath, states the [facility] has diagnosed her with CHENG and COPD. Since Saturday her shortness of breath has become progressively worse and severe with activity and at rest and she called EMS. Her oxygen saturations were 70% on room air and placed supine with CPAP and possible saturation up to 94% and received 1 dose of steroids and was brought to [facility]. She denies any history of VA, Stroke, Diabetes, CAD, heart failure. She states she has chronic lower extremity edema, has not worsened and has been treated with PO Lasix. She denies any tobacco or alcohol use. DIAGNOSTICS EKG reveals sinus rhythm, HR 88, right bundle branch block, left anterior fasicular block, T wave inversion in leads aVL, V2. No acute ishemia. QTc 470. No prior EKG to compare Echocardiogram revealed an EF 55-60%, trace mitral regurgitation, trace tricuspid regurgitation Telemetry tracings indicate sinus rhythm in the 80s-90s. CT chest negative for pulmonary embolism, lungs are clear and free of infiltrate, no heart failure. Laboratory reviewed, WBC 15.8, hemoglobin 14, platelets 245, sodium 129, potassium 3.5, BUN 14, segment 0.8, troponin 0.05 and second negative, proBNP 801, covid negative Current home cardiac medications include potassium chloride, simvastatin 40 mg nightly, metoprolol tartrate 50 mg twice a day, lisinoprilsurgical or thiazide 2025 milligrams daily, Lasix 20 mg daily REVIEW OF SYSTEMS At the time of my exam: CONSTITUTIONAL: Denies fever or chills. CARDIOVASCULAR: Denies chest pain, +shortness of breath, Denies orthopnea, PND or palpitations. RESPIRATORY: +cough with yellow/brown sputum GASTROINTESTINAL: Denies abdominal pain, diarrhea, constipation, nausea or vomiting. MUSCULOSKELETAL: Denies myalgias. NEUROLOGIC: Denies numbness, tingling, headacbe or weakness. ENDOCRINE: Denies fatigue, weight change, polydipsia or polyurina. GENITOURINARY: Denies burning, hematuria or urgency with micturation. HEMATOLOGIC: Denies history of anemia or bleeding. PHYSICAL EXAMINATION Vitals reviewed CONSTITUTIONAL: No apparent distress. HEENT: Head is normocephalic. Pupils are equal, round. Sclerae anicteric. Mucous membranes of the mouth are moist. No JVD. No carotid bruit. CHEST EXAMINATION: Lungs are clear to auscultation. No chest wall tenderness is noted on palpation or with deep breathing. HEART EXAMINATION: Regular rate and rhythm. S1, S2 heard. No murmurs, gallops or rub. ABDOMEN: Soft, nontender. Positive bowel sounds. EXTREMITIES: 2+ peripheral pulses, moderate non-pitting lower extremity edema and no calf tenderness. NEUROLOGIC EXAMINATION: Patient is awake, alert and oriented x3. ASSESSMENT Shortness of breath, cough, unclear etiology Elevated troponin, likely due to hypoxia and supply and demand mismatch, repeat negative Leukocytosis Hyponatremia Hypertension Dyslipidemia History of GERD History of anxiety/depression Obstructive sleep apnea wears CPA History of COPD/Asthma PLAN Repeat troponin negative. Echocardiogram revealed EF 55-60%, trace mitral regurgitation, trace tricuspid regurgitation. Patient's symptoms due not appear to be cardiac related. We will follow the patient as needed. Please reconsult if needed. Nurse practitioner note has been reviewed by physician. Signing provider agrees with the documented findings, assessment, and plan of care. Past Medical History Past Medical History: COPD, Eye Disorder, GERD/Reflux, Hypertension, Pneumonia, Sleep Apnea/CPAP/BIPAP, Thyroid Disorder Additional Past Medical History / Comment(s): Urinary incontinence/pt has bladder stimulator in place, UTIs, CHENG with Cpap device, bilateral glaucoma, bronchitis, bilateral leg/pedal edema, History of Any Multi-Drug Resistant Organisms: None Reported Past Surgical History: Cholecystectomy, Hysterectomy, Orthopedic Surgery Additional Past Surgical History / Comment(s): Bladder stimulator, bilateral feet bunionectomies, colonoscopy Past Anesthesia/Blood Transfusion Reactions: No Reported Reaction Smoking Status: Never smoker - Past Family History Father Additional Family Medical History / Comment(s): Respiratory problems Mother Additional Family Medical History / Comment(s): Heart problems. Medications and Allergies Home Medications Medication Instructions Recorded Confirmed Type Acetaminophen Tab [Tylenol Tab] 500 mg PO Q4H PRN MDD 6 TABS 01/03/22 01/03/22 History Albuterol Sulfate [Albuterol 2 puff PO RT-Q8H PRN 01/03/22 01/03/22 History Sulfate Hfa] Alendronate Sodium 70 mg PO Q7D 01/03/22 01/03/22 History Calcium Carbonate/Vitamin D3 1 tab PO BID 01/03/22 01/03/22 History [Calcium 500 mg-Vit D3 5 mcg (200 Unit)] Carboxymethylcell/Glycerin/Pf 1 drop BOTH EYES QID 01/03/22 01/03/22 History [Refresh Relieva Pf 0.5-1% Drop] DULoxetine HCL [Cymbalta] 60 mg PO DAILY 01/03/22 01/03/22 History Ergocalciferol [Vitamin D2 (1250 1,250 mcg PO Q14D 01/03/22 01/03/22 History Mcg = 73316 Iu)] Felodipine [Felodipine ER] 10 mg PO BID 01/03/22 01/03/22 History Fluticasone/Salmeterol [Advair 1 inhalation PO RT-BID 01/03/22 01/03/22 History 100-50 Diskus] Furosemide [Lasix] 10 mg PO DAILY 01/03/22 01/03/22 History Ipratropium/Albuter 20-100Mcg 1 puff INHALATION RT-QID PRN 01/03/22 01/03/22 History [Combivent Respimat 20-100Mcg Inhaler] Latanoprost [Xalatan 0.005%] 1 drop BOTH EYES HS 01/03/22 01/03/22 History Lisinopril-Hctz 20-25 mg 1 tab PO DAILY 01/03/22 01/03/22 History [Zestoretic 20-25] Metoprolol Tartrate [Lopressor] 50 mg PO BID 01/03/22 01/03/22 History Omeprazole [PriLOSEC] 40 mg PO DAILY 01/03/22 01/03/22 History Oxybutynin Chloride [Ditropan] 5 mg PO TID 01/03/22 01/03/22 History Potassium Chloride [Klor-Con 10 ER] 10 meq PO Q48H 01/03/22 01/03/22 History QUEtiapine FUMARATE [SEROquel] 300 mg PO HS 01/03/22 01/03/22 History Simvastatin [Zocor] 40 mg PO HS 01/03/22 01/03/22 History lamoTRIgine [LaMICtal] 100 mg PO BID 01/03/22 01/03/22 History lamoTRIgine [LaMICtal] 200 mg PO BID 01/03/22 01/03/22 History Allergies Allergy/AdvReac Type Severity Reaction Status Date / Time paliperidone [From Invega] Allergy swelling Verified 01/03/22 08:50 of tongue Penicillins Allergy Rash/Hives Verified 01/03/22 08:50 Physical Exam Vitals: Vital Signs Temp Pulse Resp BP Pulse Ox 01/03/22 14:00 85 16 136/80 99 01/03/22 11:48 83 01/03/22 11:34 79 01/03/22 09:14 82 20 126/80 98 01/03/22 07:48 97.8 F 96 20 129/67 99 01/03/22 07:26 85 01/03/22 07:16 83 01/03/22 06:34 97.7 F 85 28 H 155/90 98 Intake and Output 01/02/22 01/03/22 01/03/22 22:59 06:59 14:59 Other: Weight 103.873 kg 103.873 kg Results 01/04/22 07:17 01/04/22 07:17 Cardiac Enzymes 01/03/22 01/03/22 Range/Units 06:25 06:25 AST 24 (14-36) U/L Troponin I 0.050 H* (0.000-0.034) ng/mL CBC 01/03/22 Range/Units 06:25 WBC 15.8 H (3.8-10.6) k/uL RBC 4.52 (3.80-5.40) m/uL Hgb 14.0 (11.4-16.0) gm/dL Hct 42.2 (34.0-46.0) % Plt Count 245 (150-450) k/uL Comprehensive Metabolic Panel 01/03/22 Range/Units 06:25 Sodium 129 L (137-145) mmol/L Potassium 3.5 (3.5-5.1) mmol/L Chloride 95 L (98-107) mmol/L Carbon Dioxide 24 (22-30) mmol/L BUN 14 (7-17) mg/dL Creatinine 0.80 (0.52-1.04) mg/dL Glucose 175 H (74-99) mg/dL Calcium 8.8 (8.4-10.2) mg/dL AST 24 (14-36) U/L ALT 15 (4-34) U/L Alkaline Phosphatase 103 (38-126) U/L Total Protein 6.9 (6.3-8.2) g/dL Albumin 3.8 (3.5-5.0) g/dL Current Medications Generic Name Dose Route Start Last Admin Trade Name Freq PRN Reason Stop Dose Admin Albuterol Sulfate 2.5 mg 01/03/22 08:00 01/03/22 11:33 Albuterol Nebulized 2.5 Mg/3 Ml INHALATION 2.5 mg RT-QID PING Administration Aspirin 81 mg 01/03/22 09:00 01/03/22 08:42 Aspirin 81 Mg PO 81 mg DAILY PING Administration Azithromycin 500 mg 01/03/22 09:00 01/03/22 08:42 Azithromycin 500 Mg Tab PO 500 mg DAILY PING Administration Budesonide 0.5 mg 01/03/22 08:00 01/03/22 11:32 Budesonide 0.5 Mg/2 Ml Nebu INHALATION 0.5 mg RT-BID PING Administration Famotidine 20 mg 01/04/22 09:00 Famotidine 20 Mg/2 Ml Vial IV DAILY PING Heparin Sodium (Porcine) 5,000 unit 01/03/22 09:00 01/03/22 08:44 Heparin Sodium,Porcine/Pf 5,000 Unit/0.5 Ml Syringe SQ 5,000 unit Q12HR PING Administration Sodium Chloride 1,000 mls @ 100 mls/hr 01/03/22 07:45 Saline 0.9% IV .Q10H PING Ipratropium [place] 0.5 mg 01/03/22 08:00 01/03/22 11:32 Ipratropium 0.5 Mg/2.5 Ml Nebu INHALATION 0.5 mg RT-QID PING Administration Methylprednisolone Sodium Succinate 60 mg 01/03/22 12:00 01/03/22 08:43 Methylprednisolone Sod Succi 125 Mg/2 Ml Vial IV 60 mg Q6HR PING Administration Intake and Output 01/02/22 01/03/2222 22:59 06:59 14:59 Other: Weight 103.873 kg 103.873 kg Patient Weight 01/04/22 06:59 Weight 103.873 kg 01/03/22 06:25 01/03/22 06:25
[2022-01-04 12:16] LABS: Glucose,Whole Blood 160 mg/dL (75-99)
--- NOTE | 2022-01-04 12:25 | P.PN ---
Subjective Progress Note Date: 01/04/22 Principal diagnosis: Respiratory failure. Pulmonary consult dated 01/03/2022. 71-year-old female [facility], for shortness of breath. She was seen in the emergency room this morning. The patient complains of shortness of breath, which has been going on for at least a day or so prior to admission, may be a bit longer. She is not a good historian, and she is currently on BiPAP which makes communication and history taking a bit difficult. She denies any fever or chills. She does have a bit of a cough but she is not producing any phlegm. There is no chest pain or chest discomfort. No nausea, vomiting, or diarrhea. No leg swelling or edema. Currently, the patient's on BiPAP at 12/6 and 100%. The patient's getting saline at KVO. Her coronavirus testing was negative. Her most recent vital signs include a blood pressure 135/72, heart rate 84 respiratory rate 18-20 breaths per minute, and a saturation of 99%. Her chest x-ray showed only chronic changes, with nothing acute. White count 15.8, hemoglobin 14, hematocrit 42.2, platelet count 2 45,000. Sodium 129, potassium 3.5, chlorides 95, CO2 24, anion gap 10, BUN 14, creatinine 0.8. Troponin is 0.050. N-terminal proBNP is 801. Albumin is 3.8. Chest x-ray looks mostly clear. Progress note dated 01/04/2022. 71-year-old female seen yesterday in the emergency department. She was [facility] Her complaint was shortness of breath. When I saw her yesterday, she was on BiPAP at 12/6 and 100%. Today, she feels much better. She states that she did not use of BiPAP last night. The patient is currently on 5 L nasal cannula. She's getting saline at 20 mL an hour. She is not on home O2. She does have a history of sleep apnea syndrome but has not used her CPAP device because apparently it was recalled. She denies previous tobacco use. She apparently sees a pulmonary doctor on the outside and I asked whether or not he given her a diagnosis but she states that she can't remember what it is. She denied COPD, asthma, emphysema, chronic bronchitis, etc. On her ER delfino, says she has COPD, but she states that she never smokes cigarettes. She apparently does have a history of gastroesophageal reflux disease, hypertension, sleep apnea syndrome, and hypothyroidism. She has not been using her CPAP device. I ordered a CT angiogram yesterday, he that she might have a pulmonary embolism, but her computed tomography scan was negative for PE, and also, the lung allen were clear of any infiltrates. Laboratory da ta today includes a white count of 11.6, normal hemoglobin hematocrit and platelet count. Electrolytes for the most part are normal. Sodium is just a bit low 135. The rest of the labs look excellent. Objective - Vital Signs Vital signs: Vital Signs Temp 97.6 F 01/04/22 04:00 Pulse 90 01/04/22 11:55 Resp 20 01/04/22 08:00 BP 174/81 01/04/22 08:00 Pulse Ox 96 01/04/22 08:00 Intake & Output 01/03/22 01/04/22 01/04/22 18:59 06:59 18:59 Intake Total 240 320 240 Output Total 650 1225 Balance -410 -905 240 Weight 103.873 kg Intake: Oral 240 320 240 Output: Urine 650 1225 Other: Voiding Method Bedside Commode Bedside Commode # Bowel Movements 1 - Exam Oriented 3, much improved today, currently on 5 L nasal cannula. No conversational dyspnea or use of accessory muscles. No audible wheezing. HEENT examination is grossly unremarkable. Neck supple. Full range of motion. No adenopathy thyromegaly or neck vein distention. Cardiovascular examination reveals regular rhythm rate. S1-S2 normal. No S3 or S4. No discernible murmur noted. Heart rate 90 bpm. Lungs reveal improved bilateral breath sounds. Scattered rhonchi that occurred yesterday had mostly dissipated. No wheezes. No crackles. Saturations are 96% on 5 L. Abdomen is soft. Bowel sounds are noted. No masses or tenderness. Extremities are intact. No cyanosis clubbing or edema. Skin is without rash or lesion. Neurologic examination is brief but nonfocal. - Labs CBC & Chem 7: 01/04/22 07:17 01/04/22 07:17 Labs: Abnormal Lab Results - Last 24 Hours (Table) 01/03/22 01/03/22 01/04/22 Range/Units 16:33 19:48 06:19 WBC (3.8-10.6) k/uL Neutrophils # (1.3-7.7) k/uL Lymphocytes # (1.0-4.8) k/uL Sodium (137-145) mmol/L Glucose (74-99) mg/dL POC Glucose (mg/dL) 214 H 172 H 164 H (75-99) mg/dL Procalcitonin (0.02-0.09) ng/mL 01/04/22 01/04/22 01/04/22 Range/Units 07:17 07:17 07:17 WBC 11.6 H (3.8-10.6) k/uL Neutrophils # 10.5 H (1.3-7.7) k/uL Lymphocytes # 0.6 L (1.0-4.8) k/uL Sodium 135 L (137-145) mmol/L Glucose 156 H (74-99) mg/dL POC Glucose (mg/dL) (75-99) mg/dL Procalcitonin 0.39 H (0.02-0.09) ng/mL Assessment and Plan Assessment: Shortness of breath, of unclear etiology. Pulmonary embolism has been ruled out by CT angiogram. No evidence of pneumonia. The patient is a lifelong nonsmoker. Doubt significant COPD. Questionable history of COPD. History of obstructive sleep apnea syndrome, currently not using CPAP. History of hypertension. History of hyperlipidemia. History of gastroesophageal reflux disease. History of anxiety/depression. History of urinary incontinence. History of osteoporosis. Plan: Plan dated 01/03/2022. The patient should be sent for a CT angiogram to rule out pulmonary embolism. There is a vague history of COPD although the patient apparently is a lifelong non-tobacco user. She may have underlying asthma. That does not appear to be particularly active at this time. Additional recommendations and suggestions are forthcoming. Prognosis is guarded. We will continue to follow. FiO2 can be weaned on the BiPAP device. Plan dated 01/04/2022. The patient appears to be much improved today. I'm not sure exactly what is going on with this patient as she appears not have any underlying COPD. The CT angiogram was negative for pulmonary embolism. The lung allen themselves were clear. The patient states that she never smoked cigarettes. She does have a history of obstructive sleep apnea syndrome, but has been noncompliant with her CPAP device recently because his been recalled. She denies any prior history of any lung disease including COPD, emphysema, chronic bronchitis, asthma, etc. She apparently has seen a director of strategic alliances in the past, but she could not remember the doctor's name or any specific diagnosis that she was given. I would like to see her in the office after discharge, for complete pulmonary function testing. Time with Patient: Less than 30
[2022-01-04] MEDS: LISINOPRIL-HCTZ 20-25 MG 1 EACH TAB PO SCH (12:36)
[2022-01-04] MEDS: METOPROLOL TARTRATE 50 MG TAB PO SCH ×2 (12:38→20:15)
[2022-01-04] MEDS ORDERED: IPRATROPIUM-ALBUTEROL 3 ML NEB INHALATION PRN (12:54)
--- NOTE | 2022-01-04 14:04 | CDI ---
Demand ischemia Documentation Clarification Form Date: 01/04/2022 01:32:49 PM From: Barbara Mcknight RN, CCDS Admit Date: 01/03/2022 07:36:00 AM Patient Name: Barbara Suresh Visit Number: [id number] Discharge Date: ATTENTION: The Clinical Documentation Specialists (CDI) and [facility] Coding Staff appreciate your assistance in clarifying documentation. Please respond to the clarification below the line at the bottom and electronically sign. The CDI & [facility] Coding staff will review the response and follow-up if needed. Please note: Queries are made part of the Legal Health Record. If you have any questions, please contact the author of this message via ITS. Dr. Mario Arias There is documentation of elevated troponin, likely due to hypoxia and supply and demand mismatch. Additional clarification is requested. History/Risk Factors: Hypertension, COPD, Asthma Dyslipidemia, Sleep Apnea/CPAP/BIPAP Clinical Indicators: 71-year-old female present with complaints of shortness of breath, productive cough, dyspnea and hypoxia, She had elevated troponin 0.05, 0.024 01/03 Vital signs: 155/90 85 28 97.7 98 % BIPAP proBNP 801. EKG reveals sinus rhythm, HR 88, right bundle branch block, left anterior fascicular block, T wave inversion in leads aVL, V2. No acute ischemia. QTc 470. No prior EKG to compare. ECHO: EF 55-60 %, trace mitral regurgitation, trace tricuspid regurgitation. CT chest negative for pulmonary embolism, lungs are clear and free of infiltrate, no heart failure 01/04 Cardiology consult: Elevated troponin, likely due to hypoxia and supply and demand mismatch, repeat negative Treatment: Telemetry monitoring Monitor O2 Sat's (titrate) Metoprolol tartrate 50MG PO BID, Lisinopril/Hctz 20-25 PO Daily Albuterol Duonebs 0.5Mg-3 Mg/3ml soln QID Can you please further clarify supply and demand mismatch]? [ ] Demand ischemia without WA (other forms of acute ischemic heart disease) [ ] Type II WA due to hypoxia [ ] Other, please specify [ ] Unable to determine (Template Last Revised: January 2021) MTDD
[2022-01-04] MEDS: IPRATROPIUM-ALBUTEROL 3 ML NEB INHALATION SCH ×2 (15:43→20:17)
[2022-01-04 16:09] LABS: Glucose,Whole Blood 143 mg/dL (75-99)
[2022-01-04 16:22] LABS: Chol/HDL Ratio 3.04 Ratio; LDL Cholesterol,Calculated 110.5 mg/dL (0.0-131.0)
[2022-01-04] MEDS ORDERED: ONDANSETRON 4 MG/2 ML VIAL IVP PRN (19:44)
[2022-01-04] MEDS: FAMOTIDINE 20 MG TAB PO SCH (20:15)
[2022-01-04] MEDS: HALOPERIDOL LACTATE 5 MG/ML 1 ML VIAL IM PRN (20:15)
[2022-01-04] MEDS: ATORVASTATIN 20 MG TAB PO SCH (20:15)
[2022-01-04 20:18] LABS: Glucose,Whole Blood 145 mg/dL (75-99)
[2022-01-05] MEDS: SODIUM CHLORIDE 0.9% 1,000 ML IV SCH ×2 (05:56→12:19)
[2022-01-05] MEDS: methylPREDNISolone SOD SUCCI 125 MG/2 ML VIAL IV SCH ×2 (06:19→12:35)
[2022-01-05 06:20] LABS: Glucose,Whole Blood 130 mg/dL (75-99)
[2022-01-05] MEDS: BUDESONIDE 0.5 MG/2 ML NEBU INHALATION SCH (08:36)
[2022-01-05] MEDS: IPRATROPIUM-ALBUTEROL 3 ML NEB INHALATION SCH ×4 (08:36→19:31)
[2022-01-05] MEDS: INSULIN ASPART (NovoLOG) 100 UNIT/ML VIAL SQ SCH ×4 (08:39→20:25)
[2022-01-05] MEDS: METOPROLOL TARTRATE 50 MG TAB PO SCH ×2 (09:04→20:29)
[2022-01-05] MEDS: HEPARIN SODIUM,PORCINE/PF 5,000 UNIT/0.5 ML SYRINGE SQ SCH ×2 (09:04→23:11)
[2022-01-05] MEDS: AZITHROMYCIN 500 MG TAB PO SCH (09:04)
[2022-01-05] MEDS: LISINOPRIL-HCTZ 20-25 MG 1 EACH TAB PO SCH (09:04)
[2022-01-05] MEDS: FAMOTIDINE 20 MG TAB PO SCH ×2 (09:04→20:29)
[2022-01-05] MEDS: ASPIRIN 81 MG PO SCH (09:04)
--- NOTE | 2022-01-05 10:44 | P.PN ---
Subjective This is a pleasant 71 years old female with past medical history of hypertension and hypothyroidism Presents because of dyspnea and hypoxia, and EMS was saturation of 70% on room air and placed supine with CPAP and possible saturation up to 94% and received 1 dose of steroids. Patient came from home, she has a legal guardian. Patient states that her problems started with a cold over the weekend and to get worse but later on she said that her shortness of breath actually started last Saturday and it was gradually worse and that she is on home dose of oxygen 5 L/m as she thinks. Also she is complaining of from cough and some creamy phlegm but no chest pain or abdominal pain. No diarrhea or vomiting. No urinary complaints, she has some mild headache which is improving, no weakness or numbness or double vision or slurred speech. She was hypoxic on the way to the hospital at 70% on room air, currently she is on BiPAP was saturating 98%, mildly tachypneic at 20, afebrile. Troponin elevated 0.05. chest x-ray: Chronic parenchymal changes and cardiomegaly without acute pulmonary process. proBNP is 801 EKG showing right bundle branch block and left anterior fascicular block with QTC 470. In the emergency room she was started on Zithromax, IV Solu-Medrol and normal saline at 100 mL per hour Pulmonary team were consulted 01/04/2022 Patient mildly tachypneic while sitting in bed, no maternal wheezing on examination. Only mild 1. Patient says she coughs a lot with little phlegm but no chest pain. She's been using BiPAP most of the night in the morning she was placed on 6 L per minute of oxygen with saturation in high 90s. CT of the chest is negative Pulmonary on the case Cardiology consulted for high troponin. Patient states that albuterol inhaler causing her shakiness and exactly and wanted to be switched, I checked with the pharmacy we don't carry levoalbuterol, therefore was initiated to ipratropium as needed. 01/05/2022 A Neck and some shortness of breath, noncardiac causes per slot floorperson was signed of the case and will see the patient on an as-needed basis. Patient remains on 5 L oxygen, and she is remaining treated with some Medrol 60 mg as well as Zithromax 500 mg and normal saline at 100 mL per hour with pulmonary team on the case. procalcitonin is slightly elevated at 0.39. Hemoglobin A1c is normal at 5.9% Objective - Vital Signs Vital signs: Vital Signs Temp 97.7 F 01/05/22 09:00 Pulse 85 01/05/22 09:00 Resp 18 01/05/22 09:00 BP 167/86 01/05/22 09:00 Pulse Ox 94 L 01/05/22 09:00 Intake & Output 01/04/22 01/05/22 01/05/22 18:59 06:59 18:59 Intake Total 520 240 Output Total 450 Balance 520 -450 240 Intake: Oral 520 240 Output: Urine 450 Other: Voiding Method Bedside Commode Bedside Commode Bedside Commode # Voids 1 - Exam -GENERAL: The patient is alert and oriented x3, not in any acute distress. Morbidly obese HEENT: Pupils are round and equally reacting to light. EOMI. No scleral icterus. No conjunctival pallor. Normocephalic, atraumatic. No pharyngeal erythema. No thyromegaly. CARDIOVASCULAR: S1 and S2 present. No murmurs, rubs, or gallops. -PULMONARY: Chest is clear to auscultation, Mild scattered wheezing. no crackles ABDOMEN: Soft, nontender, nondistended, normoactive bowel sounds. No palpable organomegaly. MUSCULOSKELETAL: No joint swelling or deformity. EXTREMITIES: No cyanosis, clubbing, or pedal edema. NEUROLOGICAL: Gross neurological examination did not reveal any focal deficits. SKIN: No rashes. no petechiae. - Labs CBC & Chem 7: 01/04/22 07:17 01/04/22 07:17 Labs: Abnormal Lab Results - Last 24 Hours (Table) 01/04/22 01/04/22 01/04/22 Range/Units 07:17 07:17 11:42 POC Glucose (mg/dL) 160 H (75-99) mg/dL Cholesterol 201.00 H (0.00-200.00) mg/dL HDL Cholesterol 66.10 H (40.00-60.00) mg/dL Procalcitonin 0.39 H (0.02-0.09) ng/mL 01/04/22 01/04/22 01/05/22 Range/Units 16:04 20:17 06:19 POC Glucose (mg/dL) 143 H 145 H 130 H (75-99) mg/dL Cholesterol (0.00-200.00) mg/dL HDL Cholesterol (40.00-60.00) mg/dL Procalcitonin (0.02-0.09) ng/mL Assessment and Plan Assessment: shortness of breath and hypoxia Possible acute COPD exacerbation versus asthma Elevated troponin, cardiac causes were ruled out and slot floorperson signed off the case Acute on chronic hypoxic respiratory failure Hyponatremia Hypertension History of hyperthyroidism Obesity with BMI of 44.7 Plan: this is a pleasant 71 years old female who presents with dyspnea and elevated troponin Continue with steroids and Zithromax. Continue with oxygen supply per requirement, and BiPAP as needed Pulmonary consult We'll add aspirin 81 mg, Labs and medication were reviewed.. Continue same treatment. Continue with symptomatic treatment. Resume home medication. Monitor lytes and vitals. DVT and GI prophylaxis. Further recommendations depends on the clinical course of the patient DVT prophylaxis: Subcutaneous heparin GI Prophylaxis: Pepcid PT/OT: Deferred Prognosis is guarded
--- NOTE | 2022-01-05 11:59 | XR ---
EXAMINATION TYPE: XR KUB DATE OF EXAM: 01/05/2022 COMPARISON: NONE HISTORY: Pain TECHNIQUE: Single supine KUB image of the abdomen is obtained FINDINGS: Small bowel demonstrates no evidence for dilatation or air fluid levels. Gas and fecal material is seen in non-distended colon. No convincing evidence for pneumoperitoneum. No unusual calcifications. The lung bases are clear. The osseous structures are intact. IMPRESSION: 1. Overall nonobstructive bowel gas pattern.
[2022-01-05 16:43] LABS: Glucose,Whole Blood 134 mg/dL (75-99)
--- NOTE | 2022-01-05 16:50 | P.PN ---
Subjective Progress Note Date: 01/05/22 Principal diagnosis: Respiratory failure. Pulmonary consult dated 01/03/2022. 71-year-old female brought in from the [facility] [place] [facility], for shortness of breath. She was seen in the emergency room this morning. The patient complains of shortness of breath, which has been going on for at least a day or so prior to admission, may be a bit longer. She is not a good historian, and she is currently on BiPAP which makes communication and history taking a bit difficult. She denies any fever or chills. She does have a bit of a cough but she is not producing any phlegm. There is no chest pain or chest discomfort. No nausea, vomiting, or diarrhea. No leg swelling or edema. Currently, the patient's on BiPAP at 12/6 and 100%. The patient's getting saline at KVO. Her coronavirus testing was negative. Her most recent vital signs include a blood pressure 135/72, heart rate 84 respiratory rate 18-20 breaths per minute, and a saturation of 99%. Her chest x-ray showed only chronic changes, with nothing acute. White count 15.8, hemoglobin 14, hematocrit 42.2, platelet count 2 45,000. Sodium 129, potassium 3.5, chlorides 95, CO2 24, anion gap 10, BUN 14, creatinine 0.8. Troponin is 0.050. N-terminal proBNP is 801. Albumin is 3.8. Chest x-ray looks mostly clear. Progress note dated 01/04/2022. 71-year-old female seen yesterday in the emergency department. She was brought [facility] the [facility] [place] [facility]. Her complaint was shortness of breath. When I saw her yesterday, she was on BiPAP at 12/6 and 100%. Today, she feels much better. She states that she did not use of BiPAP last night. The patient is currently on 5 L nasal cannula. She's getting saline at 20 mL an hour. She is not on home O2. She does have a history of sleep apnea syndrome but has not used her CPAP device because apparently it was recalled. She denies previous tobacco use. She apparently sees a pulmonary doctor on the outside and I asked whether or not he given her a diagnosis but she states that she can't remember what it is. She denied COPD, asthma, emphysema, chronic bronchitis, etc. On her ER delfino, says she has COPD, but she states that she never smokes cigarettes. She apparently does have a history of gastroesophageal reflux disease, hypertension, sleep apnea syndrome, and hypothyroidism. She has not been using her CPAP device. I ordered a CT angiogram yesterday, he that she might have a pulmonary embolism, but her computed tomography scan was negative for PE, and also, the lung allen were clear of any infiltrates. Laboratory da ta today includes a white count of 11.6, normal hemoglobin hematocrit and platelet count. Electrolytes for the most part are normal. Sodium is just a bit low 135. The rest of the labs look excellent. Progress note dated 01/05/2022. This is a 71-year-old female again seen in her room. She is in room 363. Currently, she has been weaned on 3 L nasal cannula. She does have a history of sleep apnea syndrome, but is not using her CPAP device because apparently it has been recalled. The patient came in with shortness of breath and hypoxemia, but the etiology is unclear. The patient is a lifelong nontobacco user. She denies a prior history of any lung disease. Other than a blood sugar of 134, no additional labs today. The patient had a KUB, which showed an overall nonobstructive bowel gas pattern. CT angiogram was negative for pulmonary embolism. In addition, the lungs are clear and free of infiltrate. There is no evidence of atelectasis, pulmonary nodule, pulmonary mass. In addition, there was no pleural effusion. Objective - Vital Signs Vital signs: Vital Signs Temp 98.2 F 01/05/22 12:33 Pulse 82 01/05/22 16:40 Resp 18 01/05/22 12:33 BP 159/68 01/05/22 12:33 Pulse Ox 97 01/05/22 12:33 Intake & Output 01/04/22 01/05/22 01/05/22 18:59 06:59 18:59 Intake Total 520 240 Output Total 450 Balance 520 -450 240 Intake: Oral 520 240 Output: Urine 450 Other: Voiding Method Bedside Commode Bedside Commode Bedside Commode # Voids 1 - Exam Oriented 3, much improved today, currently on 3 L nasal cannula. No conversational dyspnea or use of accessory muscles. No audible wheezing. Saturations are 97%. HEENT examination is grossly unremarkable. Neck supple. Full range of motion. No adenopathy thyromegaly or neck vein distention. Cardiovascular examination reveals regular rhythm rate. S1-S2 normal. No S3 or S4. No discernible murmur noted. Heart rate 82 bpm. Lungs reveal improved bilateral breath sounds. Scattered rhonchi that occurred yesterday had mostly dissipated. No wheezes. No crackles. Saturations are 97% on 3 L. Abdomen is soft. Bowel sounds are noted. No masses or tenderness. Extremities are intact. No cyanosis clubbing or edema. Skin is without rash or lesion. Neurologic examination is brief but nonfocal. - Labs CBC & Chem 7: 01/04/22 07:17 01/04/22 07:17 Labs: Abnormal Lab Results - Last 24 Hours (Table) 01/04/22 01/05/22 Range/Units 20:17 06:19 POC Glucose (mg/dL) 145 H 130 H (75-99) mg/dL Assessment and Plan Assessment: Shortness of breath, of unclear etiology. Pulmonary embolism has been ruled out by CT angiogram. No evidence of pneumonia. The patient is a lifelong no nsmoker. Doubt significant COPD. History of obstructive sleep apnea syndrome, currently not using CPAP. History of hypertension. History of hyperlipidemia. History of gastroesophageal reflux disease. History of anxiety/depression. History of urinary incontinence. History of osteoporosis. Plan: Plan dated 01/03/2022. The patient should be sent for a CT angiogram to rule out pulmonary embolism. There is a vague history of COPD although the patient apparently is a lifelong n on-tobacco user. She may have underlying asthma. That does not appear to be particularly active at this time. Additional recommendations and suggestions are forthcoming. Prognosis is guarded. We will continue to follow. FiO2 can be weaned on the BiPAP device. Plan dated 01/04/2022. The patient appears to be much improved today. I'm not sure exactly what is going on with this patient as she appears not have any underlying COPD. The CT angiogram was negative for pulmonary embolism. The lung allen themselves were clear. The patient states that she never smoked cigarettes. She does have a history of obstructive sleep apnea syndrome, but has been noncompliant with her CPAP device recently because his been recalled. She denies any prior history of any lung disease including COPD, emphysema, chronic bronchitis, asthma, etc. She apparently has seen a first helper in the past, but she could not remember the doctor's name or any specific diagnosis that she was given. I would like to see her in the office after discharge, for complete pulmonary function testing. Plan dated 01/05/2022. The patient's doing much better. She's been weaned down to 3 L. The patient's saturation is 97%. She denies any significant breathing difficulty. A flatplate of the abdomen did not show anything acute. There is no new labs today other than a blood sugar. The patient's feeling much improved. The patient's Pulmicort is discontinued. In addition, Zithromax is discontinued. The patient will stay on the updrafts for now. We also discontinued the Solu- Medrol. The patient could be considered for possible discharge in the next 24- 48 hours. The patient should follow-up with me in the office, for pulmonary function testing, to determine whether or not she has any occult airways disease. Time with Patient: Less than 30
[2022-01-05 19:58] LABS: Glucose,Whole Blood 132 mg/dL (75-99)
[2022-01-05] MEDS: ATORVASTATIN 20 MG TAB PO SCH (20:29)
[2022-01-06] MEDS: HALOPERIDOL LACTATE 5 MG/ML 1 ML VIAL IM PRN (00:32)
[2022-01-06] MEDS: SODIUM CHLORIDE 0.9% 1,000 ML IV SCH ×2 (01:37→08:55)
[2022-01-06] MEDS: amLODIPine 10 MG TAB PO SCH ×2 (02:09→09:01)
[2022-01-06 06:07] LABS: Glucose,Whole Blood 116 mg/dL (75-99)
[2022-01-06] MEDS: INSULIN ASPART (NovoLOG) 100 UNIT/ML VIAL SQ SCH ×2 (07:18→12:15)
[2022-01-06] MEDS: IPRATROPIUM-ALBUTEROL 3 ML NEB INHALATION SCH ×4 (08:02→19:46)
[2022-01-06] MEDS: lamoTRIgine 100 MG TAB PO SCH ×2 (09:00→20:40)
[2022-01-06] MEDS: METOPROLOL TARTRATE 50 MG TAB PO SCH ×2 (09:00→20:40)
[2022-01-06] MEDS: ASPIRIN 81 MG PO SCH (09:00)
[2022-01-06] MEDS: LISINOPRIL-HCTZ 20-25 MG 1 EACH TAB PO SCH (09:00)
[2022-01-06] MEDS: FAMOTIDINE 20 MG TAB PO SCH ×2 (09:00→20:40)
[2022-01-06] MEDS: HEPARIN SODIUM,PORCINE/PF 5,000 UNIT/0.5 ML SYRINGE SQ SCH ×2 (09:00→20:40)
[2022-01-06] MEDS: DULoxetine HCL 60 MG CAPSULE.DR PO SCH (09:00)
--- NOTE | 2022-01-06 10:24 | P.PN ---
Subjective This is a pleasant 71 years old female with past medical history of hypertension and hypothyroidism Presents because of dyspnea and hypoxia, and EMS was saturation of 70% on room air and placed supine with CPAP and possible saturation up to 94% and received 1 dose of steroids. Patient came from home, she has a legal guardian. Patient states that her problems started with a cold over the weekend and to get worse but later on she said that her shortness of breath actually started last Saturday and it was gradually worse and that she is on home dose of oxygen 5 L/m as she thinks. Also she is complaining of from cough and some creamy phlegm but no chest pain or abdominal pain. No diarrhea or vomiting. No urinary complaints, she has some mild headache which is improving, no weakness or numbness or double vision or slurred speech. She was hypoxic on the way to the hospital at 70% on room air, currently she is on BiPAP was saturating 98%, mildly tachypneic at 20, afebrile. Troponin elevated 0.05. chest x-ray: Chronic parenchymal changes and cardiomegaly without acute pulmonary process. proBNP is 801 EKG showing right bundle branch block and left anterior fascicular block with QTC 470. In the emergency room she was started on Zithromax, IV Solu-Medrol and normal saline at 100 mL per hour Pulmonary team were consulted 01/04/2022 Patient mildly tachypneic while sitting in bed, no maternal wheezing on examination. Only mild 1. Patient says she coughs a lot with little phlegm but no chest pain. She's been using BiPAP most of the night in the morning she was placed on 6 L per minute of oxygen with saturation in high 90s. CT of the chest is negative Pulmonary on the case Cardiology consulted for high troponin. Patient states that albuterol inhaler causing her shakiness and exactly and wanted to be switched, I checked with the pharmacy we don't carry levoalbuterol, therefore was initiated to ipratropium as needed. 01/05/2022 A Neck and some shortness of breath, noncardiac causes per sewer line repairer was signed of the case and will see the patient on an as-needed basis. Patient remains on 5 L oxygen, and she is remaining treated with some Medrol 60 mg as well as Zithromax 500 mg and normal saline at 100 mL per hour with pulmonary team on the case. procalcitonin is slightly elevated at 0.39. Hemoglobin A1c is normal at 5.9% 01/06/2022 Patient is a breathing easier today. With mild or cough. No chest pain. Patient also on 3-5 L/m of oxygen via nasal cannula. At home patient states she was not on home oxygen but using CPAP only. She is eating well so we will discontinue IV fluids She is on updraft. Objective - Vital Signs Vital signs: Vital Signs Temp 97.6 F 01/06/22 08:54 Pulse 82 01/06/22 08:54 Resp 18 01/06/22 08:54 BP 167/80 01/06/22 08:54 Pulse Ox 96 01/06/22 08:54 Intake & Output 01/05/22 01/06/22 01/06/22 18:59 06:59 18:59 Intake Total 420 118 Balance 420 118 Intake: Oral 420 118 Other: Voiding Method Bedside Commode Bedside Commode # Voids 3 1 # Bowel Movements 1 - Exam -GENERAL: The patient is alert and oriented x3, not in any acute distress. Morbidly obese HEENT: Pupils are round and equally reacting to light. EOMI. No scleral icterus. No conjunctival pallor. Normocephalic, atraumatic. No pharyngeal erythema. No thyromegaly. CARDIOVASCULAR: S1 and S2 present. No murmurs, rubs, or gallops. -PULMONARY: Chest is clear to auscultation, Mild scattered wheezing. no crackles ABDOMEN: Soft, nontender, nondistended, normoactive bowel sounds. No palpable organomegaly. MUSCULOSKELETAL: No joint swelling or deformity. EXTREMITIES: No cyanosis, clubbing, or pedal edema. NEUROLOGICAL: Gross neurological examination did not reveal any focal deficits. SKIN: No rashes. no petechiae. - Labs CBC & Chem 7: 01/04/22 07:17 01/04/22 07:17 Labs: Abnormal Lab Results - Last 24 Hours (Table) 01/05/22 01/05/22 01/06/22 Range/Units 16:41 19:57 06:05 POC Glucose (mg/dL) 134 H 132 H 116 H (75-99) mg/dL Assessment and Plan Assessment: shortness of breath and hypoxia Possible acute COPD exacerbation versus asthma Elevated troponin, cardiac causes were ruled out and sewer line repairer signed off the case Acute on chronic hypoxic respiratory failure Hyponatremia Hypertension History of hyperthyroidism Obesity with BMI of 44.7 Plan: this is a pleasant 71 years old female who presents with dyspnea and elevated troponin Continue with bronchodilator Continue with oxygen supply per requirement. Pulmonary consult Labs and medication were reviewed.. Continue same treatment. Continue with symptomatic treatment. Resume home medication. Monitor lytes and vitals. DVT and GI prophylaxis. Further recommendations depends on the clinical course of the patient DVT prophylaxis: Subcutaneous heparin GI Prophylaxis: Pepcid Possible discharge in 24-48 hours if she keeps improvement
[2022-01-06 12:01] LABS: Glucose,Whole Blood 112 mg/dL (75-99)
--- NOTE | 2022-01-06 15:23 | P.PN ---
Subjective Progress Note Date: 01/06/22 Principal diagnosis: Respiratory failure. Pulmonary consult dated 01/03/2022. 71-year-old female brought in from the adult foster detention, for shortness of breath. She was seen in the emergency room this morning. The patient complains of shortness of breath, which has been going on for at least a day or so prior to admission, may be a bit longer. She is not a good historian, and she is currently on BiPAP which makes communication and history taking a bit difficult. She denies any fever or chills. She does have a bit of a cough but she is not producing any phlegm. There is no chest pain or chest discomfort. No nausea, vomiting, or diarrhea. No leg swelling or edema. Currently, the patient's on BiPAP at 12/6 and 100%. The patient's getting saline at KVO. Her coronavirus testing was negative. Her most recent vital signs include a blood pressure 135/72, heart rate 84 respiratory rate 18-20 breaths per minute, and a saturation of 99%. Her chest x-ray showed only chronic changes, with nothing acute. White count 15.8, hemoglobin 14, hematocrit 42.2, platelet count 2 45,000. Sodium 129, potassium 3.5, chlorides 95, CO2 24, anion gap 10, BUN 14, creatinine 0.8. Troponin is 0.050. N-terminal proBNP is 801. Albumin is 3.8. Chest x-ray looks mostly clear. Progress note dated 01/04/2022. 71-year-old female seen yesterday in the emergency department. She was brought into the hospital from adult foster detention. Her complaint was shortness of breath. When I saw her yesterday, she was on BiPAP at 12/6 and 100%. Today, she feels much better. She states that she did not use of BiPAP last night. The patient is currently on 5 L nasal cannula. She's getting saline at 20 mL an hour. She is not on home O2. She does have a history of sleep apnea syndrome but has not used her CPAP device because apparently it was recalled. She denies previous tobacco use. She apparently sees a pulmonary doctor on the outside and I asked whether or not he given her a diagnosis but she states that she can't remember what it is. She denied COPD, asthma, emphysema, chronic bronchitis, etc. On her ER delfino, says she has COPD, but she states that she never smokes cigarettes. She apparently does have a history of gastroesophageal reflux disease, hypertension, sleep apnea syndrome, and hypothyroidism. She has not been using her CPAP device. I ordered a CT angiogram yesterday, he that she might have a pulmonary embolism, but her computed tomography scan was negative for PE, and also, the lung allen were clear of any infiltrates. Laboratory da ta today includes a white count of 11.6, normal hemoglobin hematocrit and platelet count. Electrolytes for the most part are normal. Sodium is just a bit low 135. The rest of the labs look excellent. Progress note dated 01/05/2022. This is a 71-year-old female again seen in her room. She is in room 363. Currently, she has been weaned on 3 L nasal cannula. She does have a history of sleep apnea syndrome, but is not using her CPAP device because apparently it has been recalled. The patient came in with shortness of breath and hypoxemia, but the etiology is unclear. The patient is a lifelong nontobacco user. She denies a prior history of any lung disease. Other than a blood sugar of 134, no additional labs today. The patient had a KUB, which showed an overall nonobstructive bowel gas pattern. CT angiogram was negative for pulmonary embolism. In addition, the lungs are clear and free of infiltrate. There is no evidence of atelectasis, pulmonary nodule, pulmonary mass. In addition, there was no pleural effusion. Progress note dated 01/06/2022. 71-year-old female, again seen in room 363. Currently, the patient's on 3 L nasal cannula. She does use BiPAP at nighttime, with settings of IPAP 12, EPAP 6, and 50%. She's not receiving any IV fluids. Patient is doing relatively well. The patient will need outpatient evaluation including complete pulmonary function test. In addition, the patient has an established history of obstructive sleep apnea syndrome, and has recently not been using her CPAP device. There are no new labs today other than a glucose of 112. Objective - Vital Signs Vital signs: Vital Signs Temp 97.6 F 01/06/22 08:54 Pulse 76 01/06/22 12:09 Resp 18 01/06/22 08:54 BP 167/80 01/06/22 08:54 Pulse Ox 96 01/06/22 08:54 Intake & Output 01/05/22 01/06/22 01/06/22 18:59 06:59 18:59 Intake Total 420 358 Output Total 991 Balance 420 -633 Intake: Oral 420 358 Output: Urine 525 Post Void Residual 466 Other: Voiding Method Bedside Commode Bedside Commode Bedside Commode # Voids 3 1 # Bowel Movements 1 1 - Exam Oriented 3, much improved today, currently on 3 L nasal cannula. No conversational dyspnea or use of accessory muscles. No audible wheezing. Saturations are 96%. HEENT examination is grossly unremarkable. Neck supple. Full range of motion. No adenopathy thyromegaly or neck vein distention. Cardiovascular examination reveals regular rhythm rate. S1-S2 normal. No S3 or S4. No discernible murmur noted. Heart rate 76 bpm. Lungs reveal improved bilateral breath sounds. Minimal scattered rhonchi. No wheezes or crackles. Breath sounds equal bilaterally. Saturations are 96% on 3 L. Abdomen is soft. Bowel sounds are noted. No masses or tenderness. Extremities are intact. No cyanosis clubbing or edema. Skin is without rash or lesion. Neurologic examination is brief but nonfocal. - Labs CBC & Chem 7: 01/04/22 07:17 01/04/22 07:17 Labs: Abnormal Lab Results - Last 24 Hours (Table) 01/05/22 01/05/22 01/06/22 Range/Units 16:41 19:57 06:05 POC Glucose (mg/dL) 134 H 132 H 116 H (75-99) mg/dL 01/06/22 Range/Units 11:33 POC Glucose (mg/dL) 112 H (75-99) mg/dL Assessment and Plan Assessment: Shortness of breath, of unclear etiology. Pulmonary embolism has been ruled out by CT angiogram. No evidence of pneumonia. The patient is a lifelong nonsmoker. Doubt significant COPD. Possible restrictive lung disease secondary to obesity. History of obstructive sleep apnea syndrome, currently not using CPAP. History of hypertension. History of hyperlipidemia. History of gastroesophageal reflux disease. History of anxiety/depression. History of urinary incontinence. History of osteoporosis. Plan: Plan dated 01/03/2022. The patient should be sent for a CT angiogram to rule out pulmonary embolism. There is a vague history of COPD although the patient apparently is a lifelong non-tobacco user. She may have underlying asthma. That does not appear to be particularly active at this time. Additional recommendations and suggestions are forthcoming. Prognosis is guarded. We will continue to follow. FiO2 can be weaned on the BiPAP device. Plan dated 01/04/2022. The patient appears to be much improved today. I'm not sure exactly what is going on with this patient as she appears not have any underlying COPD. The CT angiogram was negative for pulmonary embolism. The lung allen themselves were clear. The patient states that she never smoked cigarettes. She does have a history of obstructive sleep apnea syndrome, but has been noncompliant with her CPAP device recently because his been recalled. She denies any prior history of any lung disease including COPD, emphysema, chronic bronchitis, asthma, etc. She apparently has seen a textile conversion manager in the past, but she could not remember the doctor's name or any specific diagnosis that she was given. I would like to see her in the office after discharge, for complete pulmonary function testing. Plan dated 01/05/2022. The patient's doing much better. She's been weaned down to 3 L. The patient's saturation is 97%. She denies any significant breathing difficulty. A flatplate of the abdomen did not show anything acute. There is no new labs today other than a blood sugar. The patient's feeling much improved. The patient's Pulmicort is discontinued. In addition, Zithromax is discontinued. The patient will stay on the [facility] for now. We also discontinued the Solu- Medrol. The patient could be considered for possible discharge in the next 24- 48 hours. The patient should follow-up with me in the office, for pulmonary function testing, to determine whether or not she has any occult airways disease. Plan dated 01/06/2022. The patient's doing much better. She's been weaned down to 3 L. The patient feels like her breathing is much improved. She did use BiPAP at 19, with settings of 12/6 and 50%. The patient's not receiving any IV fluids. The patient is a lifelong nonsmoker. She denies a previous history of any pulmonary disease. We will continue to follow make recommendations where appropriate. Prognosis is guarded. Outpatient pulmonary function testing, is essential. Time with Patient: Less than 30
[2022-01-06] MEDS: ATORVASTATIN 20 MG TAB PO SCH (20:40)
[2022-01-06] MEDS: QUEtiapine 100 MG TAB PO SCH (22:01)
[2022-01-06] MEDS: LATANOPROST 0.005% OPHTH DROPS 2.5 ML BTL BOTH EYES SCH (22:02)
[2022-01-07] MEDS: ASPIRIN 81 MG PO SCH (08:23)
[2022-01-07] MEDS: FAMOTIDINE 20 MG TAB PO SCH ×2 (08:23→20:42)
[2022-01-07] MEDS: HEPARIN SODIUM,PORCINE/PF 5,000 UNIT/0.5 ML SYRINGE SQ SCH ×2 (08:23→20:42)
[2022-01-07] MEDS: METOPROLOL TARTRATE 50 MG TAB PO SCH ×2 (08:23→20:43)
[2022-01-07] MEDS: DULoxetine HCL 60 MG CAPSULE.DR PO SCH (08:23)
[2022-01-07] MEDS: amLODIPine 10 MG TAB PO SCH (08:23)
[2022-01-07] MEDS: lamoTRIgine 100 MG TAB PO SCH ×2 (08:23→20:43)
[2022-01-07] MEDS: IPRATROPIUM-ALBUTEROL 3 ML NEB INHALATION SCH ×4 (09:08→19:18)
[2022-01-07 09:09] LABS: Basophils # (A) 0.02 X 10*3/uL (0.00-0.10); Basophils % (A) 0.2 %; Eosinophils # (A) 0.04 X 10*3/uL (0.04-0.35); Eosinophils % (A) 0.4 %; HGB 13.5 g/dL (12.0-15.0); Immature Grans, Automated 0.5 %; Lymphocytes # (A) 2.24 X 10*3/uL (0.90-5.00); Lymphocytes % (A) 22.2 %; MCH 29.7 pg (27.0-32.0); MCHC 32.1 g/dL (32.0-37.0); MCV 92.5 fL (80.0-97.0); Mean Platelet Volume 10.4 fL (9.5-12.2); Monocytes # (A) 1.05 X 10*3/uL (0.20-1.00); Monocytes % (A) 10.4 %; NRBC Per 100 WBC 0 /100 WBCS (0.0-0.0); Neutrophils % (A) 66.3 %; Platelet Count 217 X 10*3/uL (140-440); RBC 4.54 X 10*6/uL (4.10-5.20); RDW 14.3 % (11.5-14.5)
[2022-01-07 09:20] LABS: African American GFR (CKD) 70.2 (60.0-200.0); Anion Gap 12.6 mmol/L (10.00-18.00); BUN/Creat Ratio 25.63 Ratio (12.00-20.00); Blood Urea Nitrogen 24.4 mg/dL (9.0-27.0); Calcium 8.7 mg/dL (8.7-10.3); Carbon Dioxide 26.9 mmol/L (20.0-27.5); Non-African American GFR(CKD) 60.5 (60.0-200.0); Potassium 3.5 mmol/L (3.5-5.5)
[2022-01-07] MEDS: LISINOPRIL-HCTZ 20-25 MG 1 EACH TAB PO SCH (10:18)
--- NOTE | 2022-01-07 11:52 | P.PN ---
Subjective This is a pleasant 71 years old female with past medical history of hypertension and hypothyroidism Presents because of dyspnea and hypoxia, and EMS was saturation of 70% on room air and placed supine with CPAP and possible saturation up to 94% and received 1 dose of steroids. Patient came from home, she has a legal guardian. Patient states that her problems started with a cold over the weekend and to get worse but later on she said that her shortness of breath actually started last Saturday and it was gradually worse and that she is on home dose of oxygen 5 L/m as she thinks. Also she is complaining of from cough and some creamy phlegm but no chest pain or abdominal pain. No diarrhea or vomiting. No urinary complaints, she has some mild headache which is improving, no weakness or numbness or double vision or slurred speech. She was hypoxic on the way to the hospital at 70% on room air, currently she is on BiPAP was saturating 98%, mildly tachypneic at 20, afebrile. Troponin elevated 0.05. chest x-ray: Chronic parenchymal changes and cardiomegaly without acute pulmonary process. proBNP is 801 EKG showing right bundle branch block and left anterior fascicular block with QTC 470. In the emergency room she was started on Zithromax, IV Solu-Medrol and normal saline at 100 mL per hour Pulmonary team were consulted 01/04/2022 Patient mildly tachypneic while sitting in bed, no maternal wheezing on examination. Only mild 1. Patient says she coughs a lot with little phlegm but no chest pain. She's been using BiPAP most of the night in the morning she was placed on 6 L per minute of oxygen with saturation in high 90s. CT of the chest is negative Pulmonary on the case Cardiology consulted for high troponin. Patient states that albuterol inhaler causing her shakiness and exactly and wanted to be switched, I checked with the pharmacy we don't carry levoalbuterol, therefore was initiated to ipratropium as needed. 01/05/2022 A Neck and some shortness of breath, noncardiac causes per traffic expert was signed of the case and will see the patient on an as-needed basis. Patient remains on 5 L oxygen, and she is remaining treated with some Medrol 60 mg as well as Zithromax 500 mg and normal saline at 100 mL per hour with pulmonary team on the case. procalcitonin is slightly elevated at 0.39. Hemoglobin A1c is normal at 5.9% 01/06/2022 Patient is a breathing easier today. With mild or cough. No chest pain. Patient also on 3-5 L/m of oxygen via nasal cannula. At home patient states she was not on home oxygen but using CPAP only. She is eating well so we will discontinue IV fluids She is on updraft. 01/07/2022 She was doing better, no dyspnea, she is saturating 97% on room air. No other complaints. Pulmonary team recommended outpatient pulmonary function test last night she has . some urinary retention about 413 and she got straight cath, we will monitor bladder scan. However then it was checked twice and it was not elevated, and check postvoid residual was only 30 mL Her CBC and BMP are reviewed the looks stable, vitals are stable. We will check physical therapy Discontinue IV fluids Possible discharge in 24-48 hours Objective - Vital Signs Vital signs: Vital Signs Temp 98.6 F 01/07/22 10:20 Pulse 70 01/07/22 10:20 Resp 16 01/07/22 10:20 BP 129/70 01/07/22 10:20 Pulse Ox 97 01/07/22 10:20 Intake & Output 01/06/22 01/07/22 01/07/22 18:59 06:59 18:59 Intake Total 358 600 Output Total 991 Balance -633 600 Intake: Oral 358 600 Output: Urine 525 Post Void Residual 466 Other: Voiding Method Bedside Commode Toilet # Voids 2 # Bowel Movements 1 1 - Exam -GENERAL: The patient is alert and oriented x3, not in any acute distress. Morbidly obese HEENT: Pupils are round and equally reacting to light. EOMI. No scleral icterus. No conjunctival pallor. Normocephalic, atraumatic. No pharyngeal erythema. No thyromegaly. CARDIOVASCULAR: S1 and S2 present. No murmurs, rubs, or gallops. -PULMONARY: Chest is clear to auscultation, Mild scattered wheezing. no crackles ABDOMEN: Soft, nontender, nondistended, normoactive bowel sounds. No palpable organomegaly. MUSCULOSKELETAL: No joint swelling or deformity. EXTREMITIES: No cyanosis, clubbing, or pedal edema. NEUROLOGICAL: Gross neurological examination did not reveal any focal deficits. SKIN: No rashes. no petechiae. - Labs CBC & Chem 7: 01/07/22 05:05 01/07/22 05:05 Labs: Abnormal Lab Results - Last 24 Hours (Table) 01/06/22 01/07/22 01/07/22 Range/Units 11:33 05:05 05:05 WBC 10.10 H (4.50-10.00) X 10*3/uL Immature Gran # 0.05 H (0.00-0.04) X 10*3/uL Monocytes # 1.05 H (0.20-1.00) X 10*3/uL BUN/Creatinine Ratio 25.63 H (12.00-20.00) Ratio POC Glucose (mg/dL) 112 H (75-99) mg/dL Assessment and Plan Assessment: shortness of breath and hypoxia. Significantly improved Possible acute COPD exacerbation versus asthma Elevated troponin, cardiac causes were ruled out and traffic expert signed off the case Acute on chronic hypoxic respiratory failure Hyponatremia Hypertension History of hyperthyroidism Obesity with BMI of 44.7 Plan: this is a pleasant 71 years old female who presents with dyspnea and elevated troponin Continue with bronchodilator Continue with oxygen supply per requirement. Pulmonary consult Labs and medication were reviewed.. Continue same treatment. Continue with symptomatic treatment. Resume home medication. Monitor lytes and vitals. DVT and GI prophylaxis. Further recommendations depends on the clinical course of the patient DVT prophylaxis: Subcutaneous heparin GI Prophylaxis: Pepcid Possible discharge in 24-48 hours if she keeps improvement
--- NOTE | 2022-01-07 16:22 | P.PN ---
Subjective Progress Note Date: 01/07/22 Principal diagnosis: Respiratory failure. Pulmonary consult dated 01/03/2022. 71-year-old female brought in [facility], for shortness of breath. She was seen in the emergency room this morning. The patient complains of shortness of breath, which has been going on for at least a day or so prior to admission, may be a bit longer. She is not a good historian, and she is currently on BiPAP which makes communication and history taking a bit difficult. She denies any fever or chills. She does have a bit of a cough but she is not producing any phlegm. There is no chest pain or chest discomfort. No nausea, vomiting, or diarrhea. No leg swelling or edema. Currently, the patient's on BiPAP at 12/6 and 100%. The patient's getting saline at KVO. Her coronavirus testing was negative. Her most recent vital signs include a blood pressure 135/72, heart rate 84 respiratory rate 18-20 breaths per minute, and a saturation of 99%. Her chest x-ray showed only chronic changes, with nothing acute. White count 15.8, hemoglobin 14, hematocrit 42.2, platelet count 2 45,000. Sodium 129, potassium 3.5, chlorides 95, CO2 24, anion gap 10, BUN 14, creatinine 0.8. Troponin is 0.050. N-terminal proBNP is 801. Albumin is 3.8. Chest x-ray looks mostly clear. Progress note dated 01/04/2022. 71-year-old female seen yesterday in the emergency department. She was brought into the [facility]. Her complaint was shortness of breath. When I saw her yesterday, she was on BiPAP at 12/6 and 100%. Today, she feels much better. She states that she did not use of BiPAP last night. The patient is currently on 5 L nasal cannula. She's getting saline at 20 mL an hour. She is not on home O2. She does have a history of sleep apnea syndrome but has not used her CPAP device because apparently it was recalled. She denies previous tobacco use. She apparently sees a pulmonary doctor on the outside and I asked whether or not he given her a diagnosis but she states that she can't remember what it is. She denied COPD, asthma, emphysema, chronic bronchitis, etc. On her ER delfino, says she has COPD, but she states that she never smokes cigarettes. She apparently does have a history of gastroesophageal reflux disease, hypertension, sleep apnea syndrome, and hypothyroidism. She has not been using her CPAP device. I ordered a CT angiogram yesterday, he that she might have a pulmonary embolism, but her computed tomography scan was negative for PE, and also, the lung allen were clear of any infiltrates. Laboratory da ta today includes a white count of 11.6, normal hemoglobin hematocrit and platelet count. Electrolytes for the most part are normal. Sodium is just a bit low 135. The rest of the labs look excellent. Progress note dated 01/05/2022. This is a 71-year-old female again seen in her room. She is in room 363. Currently, she has been weaned on 3 L nasal cannula. She does have a history of sleep apnea syndrome, but is not using her CPAP device because apparently it has been recalled. The patient came in with shortness of breath and hypoxemia, but the etiology is unclear. The patient is a lifelong nontobacco user. She denies a prior history of any lung disease. Other than a blood sugar of 134, no additional labs today. The patient had a KUB, which showed an overall nonobstructive bowel gas pattern. CT angiogram was negative for pulmonary embolism. In addition, the lungs are clear and free of infiltrate. There is no evidence of atelectasis, pulmonary nodule, pulmonary mass. In addition, there was no pleural effusion. Progress note dated 01/06/2022. 71-year-old female, again seen in room 363. Currently, the patient's on 3 L nasal cannula. She does use BiPAP at nighttime, with settings of IPAP 12, EPAP 6, and 50%. She's not receiving any IV fluids. Patient is doing relatively well. The patient will need outpatient evaluation including complete pulmonary function test. In addition, the patient has an established history of obstructive sleep apnea syndrome, and has recently not been using her CPAP device. There are no new labs today other than a glucose of 112. Progress note dated 01/07/2022. 71-year-old female, again seen in room 363. She's now been in the hospital for 4 days. The patient's on 3 L nasal cannula. Saturations are 97%. She's not receiving any IV fluids. Currently, the patient states that she's feeling much improved. She may have some occult airways disease. She will need an outpatient evaluation, with complete pulmonary function testing. She is a lifelong nonsmoker. She does have a history of sleep apnea syndrome. She has not been using her CPAP device because apparently it has been recalled and/or is defective. White count 10.1, hemoglobin 13.5, hematocrit 42, and platelet count 217,000. Sodium 137, potassium 3.5, chlorides 98, CO2 27, anion gap 13, BUN 24.4, creatinine 1.0. Calcium is 8.7. Objective - Vital Signs Vital signs: Vital Signs Temp 97.7 F 01/07/22 12:51 Pulse 76 01/07/22 12:53 Resp 18 01/07/22 12:51 BP 124/70 01/07/22 12:51 Pulse Ox 96 01/07/22 12:54 Intake & Output 01/06/22 01/07/22 01/07/22 18:59 06:59 18:59 Intake Total 358 600 Output Total 991 Balance -633 600 Intake: Oral 358 600 Output: Urine 525 Post Void Residual 466 Other: Voiding Method Bedside Commode Toilet # Voids 2 # Bowel Movements 1 1 - Exam Oriented 3, much improved today, currently on 3 L nasal cannula. No conversat ional dyspnea or use of accessory muscles. No audible wheezing. Saturations are 97%. HEENT examination is grossly unremarkable. Neck supple. Full range of motion. No adenopathy thyromegaly or neck vein distention. Cardiovascular examination reveals regular rhythm rate. S1-S2 normal. No S3 or S4. No discernible murmur noted. Heart rate 80 bpm. Lungs reveal improved bilateral breath sounds. Minimal scattered rhonchi. No wheezes or crackles. Breath sounds equal bilaterally. Saturations are 97% on 3 L. Abdomen is soft. Bowel sounds are noted. No masses or tenderness. Extremities are intact. No cyanosis clubbing or edema. Skin is without rash or lesion. Neurologic examination is brief but nonfocal. - Labs CBC & Chem 7: 01/07/22 05:05 01/07/22 05:05 Labs: Abnormal Lab Results - Last 24 Hours (Table) 01/07/22 01/07/22 Range/Units 05:05 05:05 WBC 10.10 H (4.50-10.00) X 10*3/uL Immature Gran # 0.05 H (0.00-0.04) X 10*3/uL Monocytes # 1.05 H (0.20-1.00) X 10*3/uL BUN/Creatinine Ratio 25.63 H (12.00-20.00) Ratio Assessment and Plan Assessment: Shortness of breath, of unclear etiology. Pulmonary embolism has been ruled out by CT angiogram. No evidence of pneumonia. The patient is a lifelong no nsmoker. Doubt significant COPD. May have occult airways disease. Possible restrictive lung disease secondary to obesity. History of obstructive sleep apnea syndrome, currently not using CPAP. History of hypertension. History of hyperlipidemia. History of gastroesophageal reflux disease. History of anxiety/depression. History of urinary incontinence. History of osteoporosis. Plan: Plan dated 01/03/2022. The patient should be sent for a CT angiogram to rule out pulmonary embolism. There is a vague history of COPD although the patient apparently is a lifelong non-tobacco user. She may have underlying asthma. That does not appear to be particularly active at this time. Additional recommendations and suggestions are forthcoming. Prognosis is guarded. We will continue to follow. FiO2 can be weaned on the BiPAP device. Plan dated 01/04/2022. The patient appears to be much improved today. I'm not sure exactly what is going on with this patient as she appears not have any underlying COPD. The CT angiogram was negative for pulmonary embolism. The lung allen themselves were clear. The patient states that she never smoked cigarettes. She does have a history of obstructive sleep apnea syndrome, but has been noncompliant with her CPAP device recently because his been recalled. She denies any prior history of any lung disease including COPD, emphysema, chronic bronchitis, asthma, etc. She apparently has seen a registration manager in the past, but she could not remember the doctor's name or any specific diagnosis that she was given. I would like to see her in the office after discharge, for complete pulmonary function testing. Plan dated 01/05/2022. The patient's doing much better. She's been weaned down to 3 L. The patient's saturation is 97%. She denies any significant breathing difficulty. A flatplate of the abdomen did not show anything acute. There is no new labs today other than a blood sugar. The patient's feeling much improved. The patient's Pulmicort is discontinued. In addition, Zithromax is discontinued. The patient will stay on the [facility] for now. We also discontinued the Solu- Medrol. The patient could be considered for possible discharge in the next 24- 48 hours. The patient should follow-up with me in the office, for pulmonary function testing, to determine whether or not she has any occult airways disease. Plan dated 01/06/2022. The patient's doing much better. She's been weaned down to 3 L. The patient feels like her breathing is much improved. She did use BiPAP at 19, with settings of 12/6 and 50%. The patient's not receiving any IV fluids. The patient is a lifelong nonsmoker. She denies a previous history of any pulmonary disease. We will continue to follow make recommendations where appropriate. Prognosis is guarded. Outpatient pulmonary function testing, is essential. Plan dated 01/07/2022. Patient is doing much better. She's been weaned down to 3 L nasal cannula. She is using BiPAP at nighttime, with settings of 12/6 and 50%. The patient is a lifelong nonsmoker. She may have occult airways disease, or restrictive lung disease secondary to obesity. She will need outpatient pulmonary function testing. Labs are reviewed. The patient continues to improve. Hopeful disc harge in the near future. Additional recommendations and suggestions are forthcoming. Prognosis is guarded. Time with Patient: Less than 30
[2022-01-07] MEDS: ATORVASTATIN 20 MG TAB PO SCH (20:42)
[2022-01-07] MEDS: QUEtiapine 100 MG TAB PO SCH (20:43)
[2022-01-07] MEDS: LATANOPROST 0.005% OPHTH DROPS 2.5 ML BTL BOTH EYES SCH (20:43)
[2022-01-08] MEDS: ASPIRIN 81 MG PO SCH (07:46)
[2022-01-08] MEDS: DULoxetine HCL 60 MG CAPSULE.DR PO SCH (07:46)
[2022-01-08] MEDS: lamoTRIgine 100 MG TAB PO SCH ×2 (07:46→19:46)
[2022-01-08] MEDS: LISINOPRIL-HCTZ 20-25 MG 1 EACH TAB PO SCH (07:46)
[2022-01-08] MEDS: FAMOTIDINE 20 MG TAB PO SCH ×3 (07:46→19:46)
[2022-01-08] MEDS: METOPROLOL TARTRATE 50 MG TAB PO SCH ×2 (07:47→19:46)
[2022-01-08] MEDS: HEPARIN SODIUM,PORCINE/PF 5,000 UNIT/0.5 ML SYRINGE SQ SCH ×2 (07:47→19:46)
[2022-01-08] MEDS: amLODIPine 10 MG TAB PO SCH (07:47)
[2022-01-08] MEDS: IPRATROPIUM-ALBUTEROL 3 ML NEB INHALATION SCH ×4 (08:49→21:46)
--- NOTE | 2022-01-08 11:12 | CDI ---
Documentation Clarification Form Date: 01/08/2022 10:40:51 AM From: Barbara Mcknight RN, CCDS Admit Date: 01/03/2022 07:36:00 AM Patient Name: Barbara Suresh Visit Number: [id number] Discharge Date: ATTENTION: The Clinical Documentation Specialists (CDI) and [facility] Coding Staff appreciate your assistance in clarifying documentation. Please respond to the clarification below the line at the bottom and electronically sign. The CDI & [facility] Coding staff will review the response and follow-up if needed. Please note: Queries are made part of the Legal Health Record. If you have any questions, please contact the author of this message via ITS. Dr. Cao E Tony Asthma is documented in the progress notes starting on 01/05/22. Additional clarification is requested for the type and acuity of asthma. History/risk factors: COPD, Hypertension, Thyroid Disorder, Clinical Indicators: 71-year-old female present to ED with respiratory distress, wheezes, accessory muscle use, decreased breath sounds, prolonged expiratory per ED respiratory exam. In the progress asthma is documented. 01/03 CXR: Chronic parenchymal changes and cardiomegaly without acute pulmonary process. 01/03 Vital signs: 155/90 85 28 97.7 98 % BIPAP @ FIO2 100% Treatment: Monitor O2 Sat's (titrate) Duoneb 0.5 MG-3MG/3MLSOL Inhalation QID 01/04- Pulmicort .5 MG Inhalation BID 01/03-01/05 Solu-Medrol 60 MG IV Q6 HRS 01/03-01/05 Please clarify the type and severity of asthma, if known: [ ] Mild intermittent asthma [ ] with exacerbation [ ] without exacerbation [ ] Mild persistent asthma [ ] with exacerbation [ ] without exacerbation [ ] Moderate persistent asthma [ ] with exacerbation [ ] without exacerbation [ ] Severe persistent asthma [ ] with exacerbation [ ] without exacerbation [ ] Other, please specify ____ [ ] Unable to determine (Template Last Revised: January 2021) Unable to determine MTDD
--- NOTE | 2022-01-08 12:53 | P.PN ---
Subjective Progress Note Date: 01/08/22 Principal diagnosis: Shortness of breath On 01/08/2022 patient seen in follow-up on medical surgical floor, she is sitting up in the recliner, breathing comfortably, in no acute distress, currently on room air, earlier today she was satting 97% on 3 L, lung sounds are clear, no rhonchi or wheezing, no cough, she states overall she just feels weak, but no dyspnea, no cough, no worsening shortness of breath. She's had no acute events overnight. Room air pulse ox with exercise was 88% and patient does qualify for home oxygen. No fever or chills. A chest x-ray was negative for any acute cardiopulmonary process, chest CTA angiogram was negative for any pulmonary embolism, and lungs were clear and free of infiltrate, no atelectasis, no pulmonary nodules, no pleural effusions. Patient tested negative for COVID- 19. Today's labs have been reviewed her white blood cell count is 10.1, hemoglobin is 13.5 electrolyte and renal profile were unremarkable. Objective - Vital Signs Vital signs: Vital Signs Temp 97.9 F 01/08/22 08:00 Pulse 84 01/08/22 12:23 Resp 16 01/08/22 08:00 BP 126/77 01/08/22 08:00 Pulse Ox 90 L 01/08/22 09:18 Intake & Output 01/07/22 01/08/22 01/08/22 18:59 06:59 18:59 Intake Total 296 Balance 296 Intake: Oral 296 Other: # Voids 5 2 - Exam GENERAL EXAM: Alert, very pleasant, 71-year-old obese white female, sitting up in the chair, breathing comfortably on room air she satting 97% comfortable in no apparent distress. HEAD: Normocephalic/atraumatic. EYES: Normal reaction of pupils, equal size. Conjunctiva pink, sclera white. NOSE: Clear with pink turbinates. THROAT: No erythema or exudates. NECK: No masses, no JVD, no thyroid enlargement, no adenopathy. CHEST: No chest wall deformity. Symmetrical expansion. LUNGS: Equal air entry with no crackles, wheeze, rhonchi or dullness. CVS: Regular rate and rhythm, normal S1 and S2, no gallops, no murmurs, no rubs ABDOMEN: Soft, nontender. No hepatosplenomegaly, normal bowel sounds, no guarding or rigidity. EXTREMITIES: No clubbing, no edema, no cyanosis, 2+ pulses and upper and lower extremities. MUSCULOSKELETAL: Muscle strength and tone normal. SPINE: No scoliosis or deformity SKIN: No rashes CENTRAL NERVOUS SYSTEM: Alert and oriented -3. No focal deficits, tone is normal in all 4 extremities. PSYCHIATRIC: Alert and oriented -3. Appropriate affect. Intact judgment and insight. - Labs CBC & Chem 7: 01/07/22 05:05 01/07/22 05:05 Assessment and Plan Plan: Assessment: #1. Shortness of breath, of unclear etiology, improved. Chest x-ray was negative for acute cardiopulmonary process, CTA chest ruled out pulmonary embolism, lung windows did not show evidence of pneumonia, CHF, or pulmonary nodules or masses. Patient is a lifelong nonsmoker, no evidence of COPD. Shortness of breath may have been related to restrictive lung disease, and oak alt airways disease #2. Possibly restrictive lung disease secondary to obesity #3. History of obstructive sleep apnea currently not using CPAP #4. History of hypertension #5. History of hyperlipidemia #6. History of GERD #7. History of anxiety and depression #8. History of urinary incontinence #9. History of osteoporosis Plan: Patient denies any worsening dyspnea, no cough, vital signs have been stable She did qualify for home oxygen No acute events overnight She just complains of some weakness Physical therapy to evaluate and make a recommendation regarding discharge planning From pulmonary respect patient is stable for discharge today I performed a history & physical examination of the patient and discussed their management with my nurse practitioner, Sarah Holley. I reviewed the nurse practitioner's note and agree with the documented findings and plan of care. Lung sounds are positive for dim breath sounds throughout the lung allen. The findings and the impression was discussed with the patient. I attest to the documentation by the nurse practitioner. Time with Patient: Less than 30
--- NOTE | 2022-01-08 16:21 | P.PN ---
Subjective This is a pleasant 71 years old female with past medical history of hypertension and hypothyroidism Presents because of dyspnea and hypoxia, and EMS was saturation of 70% on room air and placed supine with CPAP and possible saturation up to 94% and received 1 dose of steroids. Patient came from home, she has a legal guardian. Patient states that her problems started with a cold over the weekend and to get worse but later on she said that her shortness of breath actually started last Saturday and it was gradually worse and that she is on home dose of oxygen 5 L/m as she thinks. Also she is complaining of from cough and some creamy phlegm but no chest pain or abdominal pain. No diarrhea or vomiting. No urinary complaints, she has some mild headache which is improving, no weakness or numbness or double vision or slurred speech. She was hypoxic on the way to the hospital at 70% on room air, currently she is on BiPAP was saturating 98%, mildly tachypneic at 20, afebrile. Troponin elevated 0.05. chest x-ray: Chronic parenchymal changes and cardiomegaly without acute pulmonary process. proBNP is 801 EKG showing right bundle branch block and left anterior fascicular block with QTC 470. In the emergency room she was started on Zithromax, IV Solu-Medrol and normal saline at 100 mL per hour Pulmonary team were consulted 01/04/2022 Patient mildly tachypneic while sitting in bed, no maternal wheezing on examination. Only mild 1. Patient says she coughs a lot with little phlegm but no chest pain. She's been using BiPAP most of the night in the morning she was placed on 6 L per minute of oxygen with saturation in high 90s. CT of the chest is negative Pulmonary on the case Cardiology consulted for high troponin. Patient states that albuterol inhaler causing her shakiness and exactly and wanted to be switched, I checked with the pharmacy we don't carry levoalbuterol, therefore was initiated to ipratropium as needed. 01/05/2022 A Neck and some shortness of breath, noncardiac causes per transactional paralegal was signed of the case and will see the patient on an as-needed basis. Patient remains on 5 L oxygen, and she is remaining treated with some Medrol 60 mg as well as Zithromax 500 mg and normal saline at 100 mL per hour with pulmonary team on the case. procalcitonin is slightly elevated at 0.39. Hemoglobin A1c is normal at 5.9% 01/06/2022 Patient is a breathing easier today. With mild or cough. No chest pain. Patient also on 3-5 L/m of oxygen via nasal cannula. At home patient states she was not on home oxygen but using CPAP only. She is eating well so we will discontinue IV fluids She is on updraft. 01/07/2022 She was doing better, no dyspnea, she is saturating 97% on room air. No other complaints. Pulmonary team recommended outpatient pulmonary function test last night she has . some urinary retention about 413 and she got straight cath, we will monitor bladder scan. However then it was checked twice and it was not elevated, and check postvoid residual was only 30 mL Her CBC and BMP are reviewed the looks stable, vitals are stable. We will check physical therapy Discontinue IV fluids Possible discharge in 24-48 hours 01/08/2022 Patient is denying any specific symptoms, she is at baseline. She has regular bowel movements. No abdominal pain, no nausea or vomiting. No urinary complaints. No respiratory complaints like no dyspnea or coughing or chest pain. However when she assessed she qualify for home oxygen. Patient is cleared for discharge by the pulmonary service Patient is medically stable for discharge pending placement Objective - Vital Signs Vital signs: Vital Signs Temp 98.4 F 01/08/22 13:32 Pulse 81 01/08/22 13:32 Resp 16 01/08/22 08:00 BP 136/76 01/08/22 13:32 Pulse Ox 94 L 01/08/22 13:32 Intake & Output 01/07/22 01/08/22 01/08/22 18:59 06:59 18:59 Intake Total 296 Balance 296 Intake: Oral 296 Other: # Voids 5 2 - Exam -GENERAL: The patient is alert and oriented x3, not in any acute distress. Morbidly obese HEENT: Pupils are round and equally reacting to light. EOMI. No scleral icterus. No conjunctival pallor. Normocephalic, atraumatic. No pharyngeal erythema. No thyromegaly. CARDIOVASCULAR: S1 and S2 present. No murmurs, rubs, or gallops. -PULMONARY: Chest is clear to auscultation, Mild scattered wheezing. no crackles ABDOMEN: Soft, nontender, nondistended, normoactive bowel sounds. No palpable organomegaly. MUSCULOSKELETAL: No joint swelling or deformity. EXTREMITIES: No cyanosis, clubbing, or pedal edema. NEUROLOGICAL: Gross neurological examination did not reveal any focal deficits. SKIN: No rashes. no petechiae. - Labs CBC & Chem 7: 01/07/22 05:05 01/07/22 05:05 Assessment and Plan Assessment: shortness of breath and hypoxia. Significantly improved Possible acute COPD exacerbation versus asthma Elevated troponin, cardiac causes were ruled out and transactional paralegal signed off the case Acute on chronic hypoxic respiratory failure Hyponatremia Hypertension History of hyperthyroidism Obesity with BMI of 44.7 Plan: this is a pleasant 71 years old female who presents with dyspnea and elevated troponin Continue with bronchodilator Continue with oxygen supply per requirement. Pulmonary consult Labs and medication were reviewed.. Continue same treatment. Continue with symptomatic treatment. Resume home medication. Monitor lytes and vitals. DVT and GI prophylaxis. Further recommendations depends on the clinical course of the patient DVT prophylaxis: Subcutaneous heparin GI Prophylaxis: Pepcid Patient is medically stable for discharge pending placement
[2022-01-08 17:06] LABS: Glucose,Whole Blood 104 mg/dL (75-99)
[2022-01-08] MEDS: ATORVASTATIN 20 MG TAB PO SCH (19:46)
[2022-01-08] MEDS: LATANOPROST 0.005% OPHTH DROPS 2.5 ML BTL BOTH EYES SCH (19:46)
[2022-01-08] MEDS: QUEtiapine 100 MG TAB PO SCH (21:21)
[2022-01-09] MEDS: DULoxetine HCL 60 MG CAPSULE.DR PO SCH (07:03)
[2022-01-09] MEDS: LISINOPRIL-HCTZ 20-25 MG 1 EACH TAB PO SCH (07:03)
[2022-01-09] MEDS: lamoTRIgine 100 MG TAB PO SCH (07:03)
[2022-01-09] MEDS: ASPIRIN 81 MG PO SCH (07:03)
[2022-01-09] MEDS: amLODIPine 10 MG TAB PO SCH (07:03)
[2022-01-09] MEDS: FAMOTIDINE 20 MG TAB PO SCH (07:04)
[2022-01-09] MEDS: METOPROLOL TARTRATE 50 MG TAB PO SCH (07:04)
[2022-01-09] MEDS: HEPARIN SODIUM,PORCINE/PF 5,000 UNIT/0.5 ML SYRINGE SQ SCH (07:04)
[2022-01-09] MEDS ORDERED: ACETAMINOPHEN TAB 325 MG TAB PO STA (07:36)
[2022-01-09] MEDS ORDERED: ACETAMINOPHEN TAB 325 MG TAB PO PRN (07:36)
[2022-01-09] MEDS: IPRATROPIUM-ALBUTEROL 3 ML NEB INHALATION SCH ×3 (08:39→15:42)
[2022-01-09 12:07] VITALS: RESP 18
[2022-01-09 14:03] VITALS: BP 91/57; TEMP 98.4
[2022-01-09 16:01] VITALS: PULSE 75
--- NOTE | 2022-01-09 21:59 | P.DS ---
Providers Date of admission: 01/03/22 07:36 Attending physician: Garth Pimentel Consults: 01/03/22 07:36 Consult Physician Urgent Consulting Provider: Serjio Vera Consult Reason/Comments: COPD exacerbation, requiring BiPAP Do you want consulting provider notified?: Yes 01/03/22 07:57 Consult Physician Urgent Consulting Provider: Chely Pham Consult Reason/Comments: Elevated troponin Do you want consulting provider notified?: Yes Primary care physician: [facility] Hospital Course: Diagnoses: shortness of breath and hypoxia. Significantly improved. Unknown etiology could be asthma Possible acute COPD exacerbation versus asthma Elevated troponin, cardiac causes were ruled out and mathematics lecturer signed off the case Acute on chronic hypoxic respiratory failure Hyponatremia Hypertension History of hyperthyroidism Obesity with BMI of 44.7 Hospital course: This is a pleasant 71 years old female with past medical history of hypertension and hypothyroidism Presents because of dyspnea and hypoxia, and EMS was saturation of 70% on room air . Patient was admitted with a provisional diagnosis of acute hypoxic respiratory failure of unclear etiology, asthma is suspected over COPD and jarad anna was treated with Solu-Medrol and received a short course of oral antibiotics of Zithromax and as well as IV fluid, patient gradually short interval improvement However by 01/05, both antibiotics and steroids were discontinued and patient monitor closely with updraft only and she did well and gradually improved and today she did not qualify for home oxygen as her pulmonary function was at base line. Pulmonary team were already on the case and the cleared her for discharge since yesterday, she could not go yesterday for placement issue as her adult foster custodial was out of poor. Today she is awake and alert, pleasant, she denies dyspnea or chest pain. No coughing. No abdominal pain or vomiting. Tolerates diet well. No change in urine or bowel habits. No fever Patient states she can go home today. Problems and management plan were discussed with the patient and he verbalized understanding and acceptance Patient was found stable and can be discharged home however he needs follow-up as an outpatient. Patient was instructed to follow up with PCP in the [place] clinic within one week and patient agrees Patient was instructed to follow up with fundraising assistant Dr. Rutledge 02/01 and she agrees Also instructed to follow up with mathematics lecturer Dr. Solomon in 2 weeks and she agrees Physical exam Gen: patient is a AAOx3, no distress CVS: S1-S2, RRR, no murmur Lungs: B/L CTA, no wheezing Abdomen: soft, no distention, no tenderness, positive bowel sounds Extremity: no leg edema or induration Time spent more than 35 minutes Plan - Discharge Summary Discharge Rx Participant: No New Discharge Prescriptions: Continue Ergocalciferol [Vitamin D2 (1250 Mcg = 57694 Iu)] 1,250 mcg PO Q14D Calcium Carbonate/Vitamin D3 [Calcium 500 mg-Vit D3 5 mcg (200 Unit)] 1 tab PO BID lamoTRIgine [LaMICtal] 100 mg PO BID Ipratropium/Albuter 20-100Mcg [Combivent Respimat 20-100Mcg Inhaler] 1 puff INHALATION RT-QID PRN PRN Reason: Shortness Of Breath Metoprolol Tartrate [Lopressor] 50 mg PO BID Lisinopril-Hctz 20-25 mg [Zestoretic 20-25] 1 tab PO DAILY Albuterol Sulfate [Albuterol Sulfate Hfa] 2 puff PO RT-Q8H PRN #1 inh PRN Reason: Shortness Of Breath Omeprazole [PriLOSEC] 40 mg PO DAILY lamoTRIgine [LaMICtal] 200 mg PO BID Oxybutynin Chloride [Ditropan] 5 mg PO TID Acetaminophen Tab [Tylenol] 500 mg PO Q4H PRN MDD 6 TABS PRN Reason: Pain Or Fever > 100.5 QUEtiapine FUMARATE [SEROquel] 300 mg PO HS Latanoprost [Xalatan 0.005%] 1 drop BOTH EYES HS DULoxetine HCL [Cymbalta] 60 mg PO DAILY Simvastatin [Zocor] 40 mg PO HS Carboxymethylcell/Glycerin/Pf [Refresh Relieva Pf 0.5-1% Drop] 1 drop BOTH EYES QID Fluticasone/Salmeterol [Advair 100-50 Diskus] 1 inhalation PO RT-BID Alendronate Sodium 70 mg PO Q7D Furosemide [Lasix] 10 mg PO DAILY Felodipine [Felodipine ER] 10 mg PO BID Potassium Chloride [Klor-Con 10 ER] 10 meq PO Q48H Discharge Medication List Acetaminophen Tab [Tylenol] 500 mg PO Q4H PRN MDD 6 TABS 01/03/22 [History] Alendronate Sodium 70 mg PO Q7D 01/03/22 [History] Calcium Carbonate/Vitamin D3 [Calcium 500 mg-Vit D3 5 mcg (200 Unit)] 1 tab PO BID 01/03/22 [History] Carboxymethylcell/Glycerin/Pf [Refresh Relieva Pf 0.5-1% Drop] 1 drop BOTH EYES QID 01/03/22 [History] DULoxetine HCL [Cymbalta] 60 mg PO DAILY 01/03/22 [History] Ergocalciferol [Vitamin D2 (1250 Mcg = 94759 Iu)] 1,250 mcg PO Q14D 01/03/22 [History] Felodipine [Felodipine ER] 10 mg PO BID 01/03/22 [History] Fluticasone/Salmeterol [Advair 100-50 Diskus] 1 inhalation PO RT-BID 01/03/22 [History] Furosemide [Lasix] 10 mg PO DAILY 01/03/22 [History] Ipratropium/Albuter 20-100Mcg [Combivent Respimat 20-100Mcg Inhaler] 1 puff INHALATION RT-QID PRN 01/03/22 [History] Latanoprost [Xalatan 0.005%] 1 drop BOTH EYES HS 01/03/22 [History] Lisinopril-Hctz 20-25 mg [Zestoretic 20-25] 1 tab PO DAILY 01/03/22 [History] Metoprolol Tartrate [Lopressor] 50 mg PO BID 01/03/22 [History] Omeprazole [PriLOSEC] 40 mg PO DAILY 01/03/22 [History] Oxybutynin Chloride [Ditropan] 5 mg PO TID 01/03/22 [History] Potassium Chloride [Klor-Con 10 ER] 10 meq PO Q48H 01/03/22 [History] QUEtiapine FUMARATE [SEROquel] 300 mg PO HS 01/03/22 [History] Simvastatin [Zocor] 40 mg PO HS 01/03/22 [History] lamoTRIgine [LaMICtal] 100 mg PO BID 01/03/22 [History] lamoTRIgine [LaMICtal] 200 mg PO BID 01/03/22 [History] Albuterol Sulfate [Albuterol Sulfate Hfa] 2 puff PO RT-Q8H PRN #1 inh 01/09/22 [Rx] Follow up Appointment(s)/Referral(s): Serjio Vera DO [Doctor of Osteopathic Medicine] - 02/01/22 1:00 pm (Lung doctor, you will need outpatient lung function test) Mariano Solomon MD [STAFF PHYSICIAN] - 2 Weeks (Railroad Signal Technician) [facility],Clinic [Primary Care Provider] - 1-2 days Patient Instructions/Handouts: COPD (Chronic Obstructive Pulmonary Disease) (DC) Activity/Diet/Wound Care/Special Instructions: Please call [facility] ([phone]) when discharged to arrange transportation back to [facility] Heart healthy diet Activity is restricted until you see your doctor Discharge Disposition: HOME SELF-CARE
== END 2022-01-09 16:17 | disposition home or self-care (01) | DRG 190 ==
LOC: EC 06:17 → 3SCARD 07:36 → EEVIPCON 07:36 → 3SCARD 13:26 → 4SSUR 01-06 16:13
PROVIDERS: ADMIT Hospitalist; ATTEND Hospitalist
PROC: 5A09357 Assistance with Respiratory Ventilation, Less than 24 Consecutive Hours, Continuous Positive Airway Pressure (ICD-10-PCS; principal; 2022-01-03)
DX: J44.1 Chronic obstructive pulmonary disease with (acute) exacerbation (principal); J96.21 Acute and chronic respiratory failure with hypoxia; I24.8 Other forms of acute ischemic heart disease; E87.1 Hypo-osmolality and hyponatremia; I45.2 Bifascicular block; Z68.41 Body mass index [BMI] 40.0-44.9, adult; I11.9 Hypertensive heart disease without heart failure; E66.01 Morbid (severe) obesity due to excess calories; Z20.822 Contact with and (suspected) exposure to COVID-19; G47.33 Obstructive sleep apnea (adult) (pediatric); F32.A Depression, unspecified; F41.9 Anxiety disorder, unspecified; K21.9 Gastro-esophageal reflux disease without esophagitis; E78.5 Hyperlipidemia, unspecified; M81.0 Age-related osteoporosis without current pathological fracture; R32 Unspecified urinary incontinence; R33.9 Retention of urine, unspecified; R77.8 Other specified abnormalities of plasma proteins; H40.9 Unspecified glaucoma; Z91.19 Patient's noncompliance with other medical treatment and regimen; Z79.83 Long term (current) use of bisphosphonates; Z79.51 Long term (current) use of inhaled steroids; Z79.899 Other long term (current) drug therapy; Z86.39 Personal history of other endocrine, nutritional and metabolic disease; Z90.49 Acquired absence of other specified parts of digestive tract; Z90.710 Acquired absence of both cervix and uterus; Z87.19 Personal history of other diseases of the digestive system; Z87.440 Personal history of urinary (tract) infections; Z96.82 Presence of neurostimulator; Z87.42 Personal history of other diseases of the female genital tract; Z87.39 Personal history of other diseases of the musculoskeletal system and connective tissue; Z87.01 Personal history of pneumonia (recurrent); Z98.890 Other specified postprocedural states; Z88.0 Allergy status to penicillin; Z88.8 Allergy status to other drugs, medicaments and biological substances
CPT/HCPCS: 36415; 71045; 71275; 74018; 80048; 80053; 80061; 83036; 83605; 83735; 83880; 84145; 84484; 85025; 87635; 93005; 93306; 94640; 94660; 94760; 96372; 96374; 96375; 99285

== ENCOUNTER → 2022-07-31 | Outpatient (CLI) | payer MEDICARE ==
--- NOTE | 2022-07-31 15:13 | CT ---
EXAMINATION TYPE: CT chest wo con DATE OF EXAM: 07/31/2022 COMPARISON: CTA chest January 03, 2022 HISTORY: SOB CT DLP: 221 mGycm. Automated Exposure Control for Dose Reduction was Utilized. TECHNIQUE: CT scan of the thorax is performed without IV contrast. High-resolution protocol with 1 m m sequences obtained 10 mm intervals in supine and prone technique. FINDINGS: Suboptimal study as there is motion artifact degradation. LUNGS: Mild peripheral reticulation and scarring in the posterior aspect of the right lower lobe is c onfirmed. No pleural effusion or pneumothorax seen bilaterally. No pulmonary masses. No suspicious fo judd consolidation. MEDIASTINUM: Lack of IV contrast intact knee are noted to limit evaluation for mediastinal and especi ally hilar adenopathy. There are no definitive greater than 1 cm mediastinal lymph nodes. Mild cardio megaly redemonstrated. No pericardial effusion is seen. There is persistent left aortic arch with lizzie rrant right brachiocephalic artery running posterior to the esophagus, normal variant. OTHER: Slight scoliotic curvature. Heterogeneous prominent thyroid gland partially imaged. IMPRESSION: Mild fibrotic change posterior aspect right lower lobe
== END | disposition home or self-care (01) ==
LOC: RADCTMAIN 11:46
PROVIDERS: ATTEND Internal Medicine Critical Care Medicine
DX: J84.10 Pulmonary fibrosis, unspecified (principal); R06.2 Wheezing
CPT/HCPCS: 71250

== ENCOUNTER 2022-09-20 16:54 | Emergency (ER) | payer MEDICARE, BC ==
[2022-09-20 17:10] VITALS: BP 154/77; PULSE 77; RESP 18; TEMP 98.5
--- NOTE | 2022-09-20 17:32 | ED ---
General Adult HPI - General Chief complaint: Recheck/Abnormal Lab/Rx Stated complaint: Possible DVT,Sent from PCP Time Seen by Provider: 09/20/22 17:27 Source: patient Mode of arrival: wheelchair - History of Present Illness Initial comments: Patient is a 71-year-old female who presents to the emergency department with a chief complaint of right thigh pain. Patient was sent in by urgent care for rule out DVT. Patient states pain started a few days ago when she was walking around in her home. She does not recall any specific injury however her son reports that she does walk up and down stairs quite a bit. Pain is in the front and middle region of her right thigh. There is no radiation. No back pain. Taking Tylenol for pain with some relief. She denies numbness, tingling, swelling, redness, weakness of the extremity. Denies history of DVT and PE. Denies family history of DVT and PE. Denies tobacco use. - Related Data Home Medications Medication Instructions Recorded Confirmed Acetaminophen Tab [Tylenol] 500 mg PO Q4H PRN MDD 6 TABS 01/03/22 01/03/22 Alendronate Sodium 70 mg PO Q7D 01/03/22 01/03/22 Calcium Carbonate/Vitamin D3 1 tab PO BID 01/03/22 01/03/22 [Calcium 500 mg-Vit D3 5 mcg (200 Unit)] Carboxymethylcell/Glycerin/Pf 1 drop BOTH EYES QID 01/03/22 01/03/22 [Refresh Relieva Pf 0.5-1% Drop] DULoxetine HCL [Cymbalta] 60 mg PO DAILY 01/03/22 01/03/22 Ergocalciferol [Vitamin D2 (1250 1,250 mcg PO Q14D 01/03/22 01/03/22 Mcg = 88121 Iu)] Felodipine [Felodipine ER] 10 mg PO BID 01/03/22 01/03/22 Fluticasone Propion/Salmeterol 1 inhalation PO RT-BID 01/03/22 01/03/22 [Advair 100-50 Diskus] Furosemide [Lasix] 10 mg PO DAILY 01/03/22 01/03/22 Ipratropium/Albuter 20-100Mcg 1 puff INHALATION RT-QID PRN 01/03/22 01/03/22 [Combivent Respimat 20-100Mcg Inhaler] Latanoprost [Xalatan 0.005%] 1 drop BOTH EYES HS 01/03/22 01/03/22 Lisinopril-Hctz 20-25 mg 1 tab PO DAILY 01/03/22 01/03/22 [Zestoretic 20-25] Metoprolol Tartrate [Lopressor] 50 mg PO BID 01/03/22 01/03/22 Omeprazole [PriLOSEC] 40 mg PO DAILY 01/03/22 01/03/22 Oxybutynin Chloride [Ditropan] 5 mg PO TID 01/03/22 01/03/22 Potassium Chloride [Klor-Con 10 ER] 10 meq PO Q48H 01/03/22 01/03/22 QUEtiapine FUMARATE [SEROquel] 300 mg PO HS 01/03/22 01/03/22 Simvastatin [Zocor] 40 mg PO HS 01/03/22 01/03/22 lamoTRIgine [LaMICtal] 100 mg PO BID 01/03/22 01/03/22 lamoTRIgine [LaMICtal] 200 mg PO BID 01/03/22 01/03/22 Previous Rx's Medication Instructions Recorded Albuterol Sulfate [Albuterol 2 puff PO RT-Q8H PRN #1 inh 01/09/22 Sulfate Hfa] Cyclobenzaprine [Flexeril] 5 mg PO HS PRN #5 tablet 09/20/22 Ibuprofen [Motrin] 400 mg PO Q6HR PRN #20 tab 09/20/22 Allergies Allergy/AdvReac Type Severity Reaction Status Date / Time paliperidone [From Invega] Allergy swelling Verified 09/20/22 17:10 of tongue Penicillins Allergy Rash/Hives Verified 09/20/22 17:10 Review of Systems ROS Statement: Those systems with pertinent positive or pertinent negative responses have been documented in the HPI. ROS Other: All systems not noted in ROS Statement are negative. Past Medical History Past Medical History: Hypertension, Thyroid Disorder Additional Past Medical History / Comment(s): home 02, pulmonary fibrosis History of Any Multi-Drug Resistant Organisms: None Reported Past Surgical History: Cholecystectomy, Hysterectomy Additional Past Surgical History / Comment(s): Bladder stimulator, bilateral feet bunionectomies, colonoscopy Past Anesthesia/Blood Transfusion Reactions: No Reported Reaction Past Psychological History: Anxiety, Depression Smoking Status: Never smoker Past Alcohol Use History: None Reported Past Drug Use History: None Reported - Past Family History Father Additional Family Medical History / Comment(s): Respiratory problems Mother Additional Family Medical History / Comment(s): Heart problems. General Exam General appearance: alert, in no apparent distress Respiratory exam: Present: normal lung sounds bilaterally. Absent: respiratory distress, wheezes, rales, rhonchi, stridor Cardiovascular Exam: Present: regular rate, normal rhythm, normal heart sounds. Absent: systolic murmur, diastolic murmur, rubs, gallop, clicks Extremities exam: Present: other (Tenderness in the right anterior and medial distal thigh without overlying erythema, ecchymosis, swelling, deformity, palpable cord. No calf tenderness) Neurological exam: Present: alert, oriented X3, CN II-XII intact Psychiatric exam: Present: normal affect, normal mood Skin exam: Present: warm, dry, intact, normal color. Absent: rash Course Vital Signs 09/20/22 17:06 Temperature 98.5 F Pulse Rate 77 Respiratory 18 Rate Blood Pressure 154/77 O2 Sat by Pulse 97 Oximetry Medical Decision Making - Medical Decision Making This is a 71-year-old female presenting with right thigh pain. Ultrasound with Doppler right lower extremity obtained. I reviewed this which was negative for DVT. Pain likely related to musculoskeletal etiology. Patient given Toradol and Flexeril in the emergency department with significant improvement of pain. GFR reviewed which is about 60. I will send patient home with a short prescription of Motrin 400. I will also send home with a short prescription of Flexeril. We discussed risk of this medication. She verbalizes understanding. Dr. Loo is my attending. Disposition Clinical Impression: Right thigh pain Disposition: HOME SELF-CARE Condition: Good Instructions (If sedation given, give patient instructions): Musculoskeletal Pain (ED) Additional Instructions: Take medication as directed. Applyint cold or warm compresses may help pain. Follow-up with primary care provider in one to 2 days. Return to the emergency department if you experience new, concerning, or worsening symptoms. Prescriptions: Cyclobenzaprine [Flexeril] 5 mg PO HS PRN #5 tablet PRN Reason: Muscle Spasm Ibuprofen [Motrin] 400 mg PO Q6HR PRN #20 tab PRN Reason: Pain Is patient prescribed a controlled substance at d/c from ED?: No Referrals: [facility],Clinic [Primary Care Provider] - 1-2 days Time of Disposition: 17:32
[2022-09-20] MEDS ORDERED: KETOROLAC 15 MG/ML 1 ML VIAL IM STA (17:39)
[2022-09-20] MEDS ORDERED: CYCLOBENZAPRINE 5 MG TAB PO STA (17:39)
== END 2022-09-20 19:47 | disposition home or self-care (01) ==
LOC: EC 16:54
DX: M79.651 Pain in right thigh (principal); I10 Essential (primary) hypertension; E07.9 Disorder of thyroid, unspecified; F32.A Depression, unspecified; F41.9 Anxiety disorder, unspecified; Z79.899 Other long term (current) drug therapy; Z79.83 Long term (current) use of bisphosphonates; Z79.891 Long term (current) use of opiate analgesic; Z88.5 Allergy status to narcotic agent; Z88.0 Allergy status to penicillin; Z79.51 Long term (current) use of inhaled steroids
CPT/HCPCS: 99284; 96372; J1885

== ENCOUNTER 2022-09-28 09:43 | Emergency (ER) | payer MEDICARE, BC ==
[2022-09-28 13:12] VITALS: RESP 18
[2022-09-28] MEDS ORDERED: HYDROcodone/APAP 5-325MG 1 EACH TAB PO STA (13:27)
--- NOTE | 2022-09-28 13:32 | ED ---
General Adult HPI - General Chief complaint: Extremity Problem,Nontraumatic Stated complaint: rt leg pain Time Seen by Provider: 09/28/22 13:02 Source: patient Mode of arrival: ambulatory Limitations: no limitations - History of Present Illness Initial comments: Dictation was produced using [employer] dictation software. please excuse any grammatical, word or spelling errors. Chief Complaint: 71-year-old female presents with right groin pain History of Present Illness: Patient is 71-year-old female she presents emergency department for right groin pain. Patient states she fell several days ago and since then has been having pain to the right inner thigh. Swirsky whenever she tries to move in certain directions. Patient able to ambulate though with a mild antalgic gait. The ROS documented in this emergency department record has been reviewed and confirmed by me. Those systems with pertinent positive or negative responses have been documented in the HPI. All other systems are other negative and/or noncontributory. PHYSICAL EXAM: General Impression: Alert and oriented x3, not in acute distress HEENT: Normocephalic atraumatic, extra-ocular movements intact, pupils equal and reactive to light bilaterally, mucous membranes moist. Cardiovascular: Heart regular rate and rhythm Chest: Able to complete full sentences, no retractions, no tachypnea Abdomen: abdomen soft, non-tender, non-distended, no organomegaly Musculoskeletal: Pulses present and equal in all extremities, no peripheral edema Motor: no focal deficits noted Neurological: CN II-XII grossly intact, no focal motor or sensory deficits noted Skin: Intact with no visualized rashes Psych: Normal affect and mood Right hip: Atraumatic, no ecchymoses, pain is reproduced with the abduction and right hip internal rotation ED course: 71 Year old female presents to the emergency department for right groin strain. Vital Signs upon arrival are within acceptable limits. Hip x-ray is unremarkable. Femur x-ray showed perhaps may be a patella fracture. Radiology recommends knee x-rays. The x-rays unremarkable. Patient observed in emergency department for 4 hours and 40 minutes. Reevaluated at the bedside at 2:30 PM found to be stable medical condition. Patient discharged advised follow-up with primary care doctor. - Related Data Home Medications Medication Instructions Recorded Confirmed Acetaminophen Tab [Tylenol] 500 mg PO Q4H PRN MDD 6 TABS 01/03/22 01/03/22 Alendronate Sodium 70 mg PO Q7D 01/03/22 01/03/22 Calcium Carbonate/Vitamin D3 1 tab PO BID 01/03/22 01/03/22 [Calcium 500 mg-Vit D3 5 mcg (200 Unit)] Carboxymethylcell/Glycerin/Pf 1 drop BOTH EYES QID 01/03/22 01/03/22 [Refresh Relieva Pf 0.5-1% Drop] DULoxetine HCL [Cymbalta] 60 mg PO DAILY 01/03/22 01/03/22 Ergocalciferol [Vitamin D2 (1250 1,250 mcg PO Q14D 01/03/22 01/03/22 Mcg = 76176 Iu)] Felodipine [Felodipine ER] 10 mg PO BID 01/03/22 01/03/22 Fluticasone Propion/Salmeterol 1 inhalation PO RT-BID 01/03/22 01/03/22 [Advair 100-50 Diskus] Furosemide [Lasix] 10 mg PO DAILY 01/03/22 01/03/22 Ipratropium/Albuter 20-100Mcg 1 puff INHALATION RT-QID PRN 01/03/22 01/03/22 [Combivent Respimat 20-100Mcg Inhaler] Latanoprost [Xalatan 0.005%] 1 drop BOTH EYES HS 01/03/22 01/03/22 Lisinopril-Hctz 20-25 mg 1 tab PO DAILY 01/03/22 01/03/22 [Zestoretic 20-25] Metoprolol Tartrate [Lopressor] 50 mg PO BID 01/03/22 01/03/22 Omeprazole [PriLOSEC] 40 mg PO DAILY 01/03/22 01/03/22 Oxybutynin Chloride [Ditropan] 5 mg PO TID 01/03/22 01/03/22 Potassium Chloride [Klor-Con 10 ER] 10 meq PO Q48H 01/03/22 01/03/22 QUEtiapine FUMARATE [SEROquel] 300 mg PO HS 01/03/22 01/03/22 Simvastatin [Zocor] 40 mg PO HS 01/03/22 01/03/22 lamoTRIgine [LaMICtal] 100 mg PO BID 01/03/22 01/03/22 lamoTRIgine [LaMICtal] 200 mg PO BID 01/03/22 01/03/22 Previous Rx's Medication Instructions Recorded Albuterol Sulfate [Albuterol 2 puff PO RT-Q8H PRN #1 inh 01/09/22 Sulfate Hfa] Cyclobenzaprine [Flexeril] 5 mg PO HS PRN #5 tablet 09/20/22 Ibuprofen [Motrin] 400 mg PO Q6HR PRN #20 tab 09/20/22 Allergies Allergy/AdvReac Type Severity Reaction Status Date / Time paliperidone [From Invega] Allergy swelling Verified 09/28/22 09:52 of tongue Penicillins Allergy Rash/Hives Verified 09/28/22 09:52 Review of Systems ROS Statement: Those systems with pertinent positive or pertinent negative responses have been documented in the HPI. ROS Other: All systems not noted in ROS Statement are negative. Past Medical History Past Medical History: Hypertension, Thyroid Disorder Additional Past Medical History / Comment(s): home 02, pulmonary fibrosis History of Any Multi-Drug Resistant Organisms: None Reported Past Surgical History: Cholecystectomy, Hysterectomy Additional Past Surgical History / Comment(s): Bladder stimulator, bilateral feet bunionectomies, colonoscopy Past Anesthesia/Blood Transfusion Reactions: No Reported Reaction Past Psychological History: Anxiety, Depression Smoking Status: Never smoker Past Alcohol Use History: None Reported Past Drug Use History: None Reported - Past Family History Father Additional Family Medical History / Comment(s): Respiratory problems Mother Additional Family Medical History / Comment(s): Heart problems. General Exam Limitations: no limitations Course Vital Signs 09/28/22 09/28/22 09:49 13:11 Temperature 98.4 F Pulse Rate 78 76 Respiratory 20 18 Rate Blood Pressure 132/72 134/79 O2 Sat by Pulse 99 100 Oximetry Disposition Clinical Impression: Groin strain Disposition: HOME SELF-CARE Condition: Good Instructions (If sedation given, give patient instructions): Groin Strain (ED) Is patient prescribed a controlled substance at d/c from ED?: No Referrals: [facility],Clinic [Primary Care Provider] - 1-2 days Time of Disposition: 15:01
--- NOTE | 2022-09-28 14:00 | XR ---
EXAMINATION TYPE: XR Hip Complete RT DATE OF EXAM: 09/28/2022 CLINICAL HISTORY: pain TECHNIQUE: AP and frogleg views of the right hip are obtained. COMPARISON: None. FINDINGS: There is no acute fracture/dislocation evident. The joint space appears mildly narrowed. The overlying soft tissue appears unremarkable. IMPRESSION: 1. There is no acute fracture or dislocation. ICD 10 NO FRACTURE, INITIAL EVALUATION
--- NOTE | 2022-09-28 14:01 | XR ---
EXAMINATION TYPE: XR femur RT DATE OF EXAM: 09/28/2022 COMPARISON: NONE HISTORY: Obtained TECHNIQUE: 4 views submitted FINDINGS: There is a leads seen overlying the right iliac bone and pelvis. There is moderate to sever e narrowing of hip joint with hypertrophic change. Fibula. Severe arthropathy of the knee joint. Ther e is a deformity of the superior margin patella. Small amount of fluid in the suprapatellar bursa. IMPRESSION: 1. There is a defect involving the upper pole of patella which should be correlated with x-ray of the right knee to exclude fracture. 2. Severe osteoarthritis of the knee and hip joint. Correlate for femoral acetabular impingement.
--- NOTE | 2022-09-28 14:45 | XR ---
EXAMINATION TYPE: XR knee 4V RT DATE OF EXAM: 09/28/2022 CLINICAL HISTORY: pain TECHNIQUE: Three views of the right knee are obtained. COMPARISON: None. FINDINGS: There is no acute fracture/dislocation. Moderate to severe degenerative narrowing medial t ibiofemoral joint space and patellofemoral joint space. Suprapatellar loose body noted. Stents of spu r formation seen about the femoral condyles and tibial plateaus as well as intracondylar patellar reg ions. The overlying soft tissue appears unremarkable. IMPRESSION: There is no acute fracture or dislocation.ICD 10 NO FRACTURE, INITIAL EVALUATION
[2022-09-28 15:10] VITALS: BP 154/70; PULSE 79; TEMP 98.2
== END 2022-09-28 15:11 | disposition home or self-care (01) ==
LOC: EC 09:43
DX: S76.211A Strain of adductor muscle, fascia and tendon of right thigh, initial encounter (principal); I10 Essential (primary) hypertension; E07.9 Disorder of thyroid, unspecified; F41.9 Anxiety disorder, unspecified; F32.A Depression, unspecified; Z88.0 Allergy status to penicillin; Z88.8 Allergy status to other drugs, medicaments and biological substances; Z79.899 Other long term (current) drug therapy; X50.9XXA Other and unspecified overexertion or strenuous movements or postures, initial encounter
CPT/HCPCS: 73502; 99284

== ENCOUNTER → 2023-05-06 | Outpatient (CLI) | payer MEDICARE, BC ==
--- NOTE | 2023-05-06 13:31 | MM ---
Reason for Exam: Screening (asymptomatic). Last mammogram was performed 1 year(s) and 11 month(s) ago. Patient History: Menarche at age 13. Patient has no children. Left ovary removed at age 39. Right ovary removed at age 39. Hysterectomy at age 39. Postmenopausal. Risk Values: Allison 5 year model risk: 1.9%. NCI Lifetime model risk: 5.4%. Prior Study Comparison: 05/18/2019 Bilateral Diagnostic Mammogram, [facility]. 05/31/2020 Bilateral Screening Mammogram, [facility]. 06/02/2021 Bilateral Screening Mammogram, [facility]. Tissue Density: The breast tissue is heterogeneously dense. This may lower the sensitivity of mammography. Findings: Analyzed By CAD. Scattered benign-appearing calcifications. There is no suspicious group of microcalcifications or new suspicious mass in either breast. Overall Assessment: Benign, BI-RAD 2 Management: Screening Mammogram of both breasts in [address] [facility] will attempt to contact patient to return for supplemental views and ultrasound if indicated. Patient should continue monthly self-breast exams. A clinical breast exam by your physician is recommended on an annual basis. This exam should not preclude additional follow-up of suspicious palpable abnormalities. Note on Allison scores and lifetime risk: 1. A Allison score greater than 3% is considered moderate risk. If this is the case, consider specialist referral to assess eligibility for a risk reducing agent. 2. If overall lifetime risk for the development of breast cancer is 20% or higher, the patient may qualify for future screening with alternating mammogram and breast MRI. Electronically signed and approved by: Serjio Kwan DO
== END | disposition home or self-care (01) ==
LOC: RADMAMWWP 10:52
DX: Z12.31 Encounter for screening mammogram for malignant neoplasm of breast (principal); Z78.0 Asymptomatic menopausal state
CPT/HCPCS: 77063; 77067